=== PATIENT | female | born 1990 | race Caucasian/White ===

== ENCOUNTER 2018-12-07 08:37 | Emergency (ER) | payer MEDICAID, SELFPAY ==
[2018-12-07] VITALS (15 sets, daily range): BP systolic 124–130; BP diastolic 80–81; PULSE 53–80; RESP 9–17; TEMP 36.5–36.6; O2SAT 97–98
--- NOTE | 2018-12-07 09:07 | W.ED.GENAD ---
Discharge Plan Disposition Patient Disposition: HOME Discharge Details Chief Complaint: Allergic Clinical Impression: Rash, Strep pharyngitis Primary Care Provider: Neeraj Shaffer ED Provider: Devan Benitez Home Meds and New Rx's Prescriptions: New doxycycline hyclate 100 mg capsule 100 mg PO BID Qty: 20 RF: 0 clindamycin HCl 150 mg capsule 450 mg PO TID 10 Days Qty: 90 RF: 0 Continued medroxyprogesterone [Depo-Provera] 150 mg/mL syringe 150 mg IM .Q3 MONTHS Qty: 1 RF: 0 fluoxetine 20 mg capsule 20 mg PO DAILY Qty: 90 RF: 3 buprenorphine-naloxone [Suboxone] 8-2 mg film 1 film SL BID MDD 16 mg Qty: 28 RF: 0 vitamin B complex tablet 1 tab PO DAILY RF: 0 melatonin 5 mg capsule 5 mg PO HS PRN RF: 0 Discontinued terbinafine HCl 250 mg tablet 250 mg PO DAILY Qty: 14 RF: 0 Discharge Instructions Instructions: Cellulitis (ED), Pharyngitis (ED) Additional Instructions: Please take clindamycin and doxycycline as prescribed. Please contact your primary care physician to arrange follow-up. Call today to be seen in reassessment later this week. Return to the ER for any worsening or new concerning symptoms. Referrals: Bob Machado DO [OSTEOPATHIC DOCTOR] - Medical Decision Making 9:00 --28-year-old female with h/o MRSA here with sore throat, rash on her scalp, draining wound posterior scalp -on terbinafine for the past 3 days. Consider disseminated fungal infection. New sexual partner. Will check for HIV. Also check for syphillis. Screening labs including chemistry, CBC. Wound culture. 9:15 -- Rapid strep testing faintly positive. 11:15 --labs reviewed and nondiagnostic. Plan to treat with clindamycin for strep, patient has anaphylactic reaction to penicillin, and will also cover with doxycycline for MRSA coverage. I spoke to Dr. Pruett about the treatment plan and he will see the patient in follow-up. Cultures pending at discharge. Disposition decision was made weighing the risks and benefits of hospitalization versus outpatient treatment, the risk for further decompensation, and the patient's wishes. The patient was stable and requested discharge. Prior to discharge, my usual and customary return precautions were reviewed with the patient - this included follow-up instructions and reason to return to the emergency department if condition worsens, does not improve as expected, or other new concerns arise. HPI General Mode of arrival: ambulatory. Date/Time Provider Initiated Documentation: 12/07/18 08:50. Limitations to Documentation: no limitations. Information obtained by: patient. HPI Narrative: 28-year-old female presents with chief complaint of sore throat. Patient notes that she saw her primary care physician last week. She noticed a sore in the back of her scalp. Primary care physician was worried about tinea capitis and started her on to her on terbinifine. She took 3 days of antifungal. Over the past couple days she has developed additional circular sores on her frontal scalp, and face largest on her chin measuring about 1 cm. Today she woke up with a sore throat and sensation that her throat is swollen. No urticarial rash. No nausea or vomiting. No fever. Patient has new sexual partner recently. Immunizations are up-to-date. Patient has prior heroin injection, has never used IV drugs, currently controlled on Suboxone. Related Data Home Medications Medication Instructions Recorded Confirmed medroxyprogesterone 150 mg/mL 150 mg IM .Q3 MONTHS #1 ml 10/23/18 12/07/18 intramuscular syringe melatonin 5 mg capsule 5 mg PO HS PRN cap 11/18/18 12/07/18 vitamin B complex tablet 1 tab PO DAILY 11/18/18 12/07/18 buprenorphine 8 mg-naloxone 2 mg 1 film SL BID #28 each MDD 16 mg 12/04/18 12/07/18 sublingual film fluoxetine 20 mg capsule 20 mg PO DAILY #90 cap 12/04/18 12/07/18 clindamycin HCl 450 mg PO TID 10 Days #90 cap 12/07/18 doxycycline hyclate 100 mg PO BID #20 cap 12/07/18 Previous Rx's Medication Instructions Recorded medroxyprogesterone 150 mg/mL 150 mg IM .Q3 MONTHS #1 ml 10/23/18 intramuscular syringe buprenorphine 8 mg-naloxone 2 mg 1 film SL BID #28 each MDD 16 mg 12/04/18 sublingual film fluoxetine 20 mg capsule 20 mg PO DAILY #90 cap 12/04/18 clindamycin HCl 450 mg PO TID 10 Days #90 cap 12/07/18 doxycycline hyclate 100 mg PO BID #20 cap 12/07/18 Allergies Allergy/AdvReac Type Severity Reaction Status Date / Time Penicillins Allergy Anaphylaxsi Verified 12/07/18 08:55 s General Stated Complaint: Allergic ADY: 2 Review of Systems Review of Systems All systems reviewed & are unremarkable except as noted in HPI and below PFSH Medical History Tobacco use disorder (Acute) Opioid abuse (Acute) Menorrhagia (Acute) Depressive disorder (Acute) Amenorrhea (Acute) Intrauterine (Acute) Pityriasis versicolor (Acute) Family History Mother Breast cancer Hypertension Father Hypertension Social History adopted: No caregiver/support person: No foster care: No household members: family and children lives independently: Yes number of children: 1 current occupational status: unemployed frequency: 3-4 times per week Smoking/Tobacco Use Status: Current every day alcohol intake: current alcohol intake frequency: holidays/special occasions only substance use type: marijuana seatbelt use: always 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 working smoke detector in home: Yes fire extinguisher in home: Yes carbon monox detector in home: Yes Exam Const General: cooperative and no acute distress HENMT Head: scalp lesion (cicular lesion posterior scalp with purulent discharge) Mouth: moist mucous membranes Throat: uvula midline, posterior oropharynx abnormal edema, erythema and exudates and uvular edema Eyes Conjunctivae: normal conjunctivae Sclera: normal sclerae EOM: EOM intact bilaterally Neck Neck: trachea midline and supple Resp Auscultation: clear to auscultation bilaterally, no rales, no rhonchi and no wheezes Cardio Jugular venous pressure: no JVD Rate: regular rate and not tachycardic Rhythm: regular rhythm GI Palpation: soft, not firm, no guarding, no masses, not rigid and nontender Skin Rashes: rashes noted (see head above, also with few lesions on face including shallow ulcer chin) Neuro General: alert, awake, oriented x3 and tone normal Extrem General: no edema Psych Appearance: grossly normal Mental Status: mental status grossly normal Speech and Movement: speech and movement normal Course Vital Signs Temperature 36.6 C 12/07/18 08:50 Pulse 75 12/07/18 08:50 Respiratory Rate 15 12/07/18 08:50 Blood Pressure 124/81 12/07/18 08:50 Pulse Oximetry 98 12/07/18 08:50 Temperature 36.6 C 12/07/18 08:50 Temperature Source Temporal Artery Scan 12/07/18 08:50 Pulse 75 12/07/18 08:50 Respiratory Rate 15 12/07/18 08:50 Respiratory Effort Non-Labored 12/07/18 09:03 Respiratory Pattern Normal 12/07/18 09:03 Blood Pressure 124/81 12/07/18 08:50 Blood Pressure Position Sitting 12/07/18 08:50 Pulse Oximetry 98 12/07/18 08:50 Oxygen Delivery Method Room Air 12/07/18 08:50 Oxygen Flow Rate 0 12/07/18 08:50 Pain Level 0 12/07/18 08:50 Lab/Test Results Lab/Test Results: POC Strep Test-[facility](Rapid) Start: 12/07/18 09:01 Freq: .Rapid Strep Test Status: Active Protocol: Document 12/07/18 09:07 SGL (Rec: 12/07/18 09:07 [facility] [place] [id number]) Strep test-[facility](Rapid)-POC POC-Strep test-[facility] (Rapid) Positive POC-Strep test-[facility] (Rapid) Positive
--- NOTE | 2018-12-07 09:17 | ED.GENADUL_ITS ---
Discharge Plan Disposition Patient Disposition: HOME Discharge Details Chief Complaint: Allergic Clinical Impression: Rash, Strep pharyngitis Primary Care Provider: Neeraj Shaffer ED Provider: Devan Benitez Home Meds and New Rx's Prescriptions: New doxycycline hyclate 100 mg capsule 100 mg PO BID Qty: 20 RF: 0 clindamycin HCl 150 mg capsule 450 mg PO TID 10 Days Qty: 90 RF: 0 Continued medroxyprogesterone [Depo-Provera] 150 mg/mL syringe 150 mg IM .Q3 MONTHS Qty: 1 RF: 0 fluoxetine 20 mg capsule 20 mg PO DAILY Qty: 90 RF: 3 buprenorphine-naloxone [Suboxone] 8-2 mg film 1 film SL BID MDD 16 mg Qty: 28 RF: 0 vitamin B complex tablet 1 tab PO DAILY RF: 0 melatonin 5 mg capsule 5 mg PO HS PRN RF: 0 Discontinued terbinafine HCl 250 mg tablet 250 mg PO DAILY Qty: 14 RF: 0 Discharge Instructions Instructions: Cellulitis (ED), Pharyngitis (ED) Additional Instructions: Please take clindamycin and doxycycline as prescribed. Please contact your primary care physician to arrange follow-up. Call today to be seen in reassessment later this week. Return to the ER for any worsening or new concerning symptoms. Referrals: Bob Machado DO [OSTEOPATHIC DOCTOR] - Medical Decision Making 9:00 --28-year-old female with h/o MRSA here with sore throat, rash on her scalp, draining wound posterior scalp -on terbinafine for the past 3 days. Consider disseminated fungal infection. New sexual partner. Will check for HIV. Also check for syphillis. Screening labs including chemistry, CBC. Wound culture. 9:15 -- Rapid strep testing faintly positive. 11:15 --labs reviewed and nondiagnostic. Plan to treat with clindamycin for strep, patient has anaphylactic reaction to penicillin, and will also cover with doxycycline for MRSA coverage. I spoke to Dr. Pruett about the treatment plan and he will see the patient in follow-up. Cultures pending at discharge. Disposition decision was made weighing the risks and benefits of hospitalization versus outpatient treatment, the risk for further decompensation, and the patient's wishes. The patient was stable and requested discharge. Prior to discharge, my usual and customary return precautions were reviewed with the patient - this included follow-up instructions and reason to return to the emergency department if condition worsens, does not improve as expected, or other new concerns arise. HPI General Mode of arrival: ambulatory . Date/Time Provider Initiated Documentation: 12/07/18 08:50 . Limitations to Documentation: no limitations . Information obtained by: patient . HPI Narrative: 28-year-old female presents with chief complaint of sore throat. Patient notes that she saw her primary care physician last week. She noticed a sore in the back of her scalp. Primary care physician was worried about tinea capitis and started her on to her on terbinifine. She took 3 days of antifungal. Over the past couple days she has developed additional circular sores on her frontal scalp, and face largest on her chin measuring about 1 cm. Today she woke up with a sore throat and sensation that her throat is swollen. No urticarial rash. No nausea or vomiting. No fever. Patient has new sexual partner recently. Immunizations are up-to-date. Patient has prior heroin injection, has never used IV drugs, currently controlled on Suboxone. Related Data Home Medications Medication Instructions Recorded Confirmed medroxyprogesterone 150 mg/mL 150 mg IM .Q3 MONTHS #1 ml 10/23/18 12/07/18 intramuscular syringe melatonin 5 mg capsule 5 mg PO HS PRN cap 11/18/18 12/07/18 vitamin B complex tablet 1 tab PO DAILY 11/18/18 12/07/18 buprenorphine 8 mg-naloxone 2 mg 1 film SL BID #28 each MDD 16 mg 12/04/18 12/07/18 sublingual film fluoxetine 20 mg capsule 20 mg PO DAILY #90 cap 12/04/18 12/07/18 clindamycin HCl 450 mg PO TID 10 Days #90 cap 12/07/18 doxycycline hyclate 100 mg PO BID #20 cap 12/07/18 Previous Rx's Medication Instructions Recorded medroxyprogesterone 150 mg/mL 150 mg IM .Q3 MONTHS #1 ml 10/23/18 intramuscular syringe buprenorphine 8 mg-naloxone 2 mg 1 film SL BID #28 each MDD 16 mg 12/04/18 sublingual film fluoxetine 20 mg capsule 20 mg PO DAILY #90 cap 12/04/18 clindamycin HCl 450 mg PO TID 10 Days #90 cap 12/07/18 doxycycline hyclate 100 mg PO BID #20 cap 12/07/18 Allergies Allergy/AdvReac Type Severity Reaction Status Date / Time Penicillins Allergy Anaphylaxsi Verified 12/07/18 08:55 s General Stated Complaint: Allergic ADY: 2 Review of Systems Review of Systems All systems reviewed & are unremarkable except as noted in HPI and below PFSH Medical History Tobacco use disorder (Acute) Opioid abuse (Acute) Menorrhagia (Acute) Depressive disorder (Acute) Amenorrhea (Acute) Intrauterine (Acute) Pityriasis versicolor (Acute) Family History Mother Breast cancer Hypertension Father Hypertension Social History adopted: No caregiver/support person: No foster care: No household members: family and children lives independently: Yes number of children: 1 current occupational status: unemployed frequency: 3-4 times per week Smoking/Tobacco Use Status: Current every day alcohol intake: current alcohol intake frequency: holidays/special occasions only substance use type: marijuana seatbelt use: always drive 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 working smoke detector in home: Yes fire extinguisher in home: Yes carbon monox detector in home: Yes Exam Const General: cooperative and no acute distress HENMT Head: scalp lesion (cicular lesion posterior scalp with purulent discharge) Mouth: moist mucous membranes Throat: uvula midline, posterior oropharynx abnormal edema, erythema and exudates and uvular edema Eyes Conjunctivae: normal conjunctivae Sclera: normal sclerae EOM: EOM intact bilaterally Neck Neck: trachea midline and supple Resp Auscultation: clear to auscultation bilaterally, no rales, no rhonchi and no wheezes Cardio Jugular venous pressure: no JVD Rate: regular rate and not tachycardic Rhythm: regular rhythm GI Palpation: soft, not firm, no guarding, no masses, not rigid and nontender Skin Rashes: rashes noted (see head above, also with few lesions on face including shallow ulcer chin) Neuro General: alert, awake, oriented x3 and tone normal Extrem General: no edema Psych Appearance: grossly normal Mental Status: mental status grossly normal Speech and Movement: speech and movement normal Course Vital Signs Temperature 36.6 C 12/07/18 08:50 Pulse 75 12/07/18 08:50 Respiratory Rate 15 12/07/18 08:50 Blood Pressure 124/81 12/07/18 08:50 Pulse Oximetry 98 12/07/18 08:50 Temperature 36.6 C 12/07/18 08:50 Temperature Source Temporal Artery Scan 12/07/18 08:50 Pulse 75 12/07/18 08:50 Respiratory Rate 15 12/07/18 08:50 Respiratory Effort Non-Labored 12/07/18 09:03 Respiratory Pattern Normal 12/07/18 09:03 Blood Pressure 124/81 12/07/18 08:50 Blood Pressure Position Sitting 12/07/18 08:50 Pulse Oximetry 98 12/07/18 08:50 Oxygen Delivery Method Room Air 12/07/18 08:50 Oxygen Flow Rate 0 12/07/18 08:50 Pain Level 0 12/07/18 08:50 Lab/Test Results Lab/Test Results: POC Strep Test-[facility](Rapid) Start: 12/07/18 09:01 Freq: .Rapid Strep Test Status: Active Protocol: Document 12/07/18 09:07 SGL (Rec: 12/07/18 09:07 [facility] [place] [id number]) Strep test-[facility](Rapid)-POC POC-Strep test-[facility] (Rapid) Positive POC-Strep test-[facility] (Rapid) Positive
[2018-12-07] MEDS: Acetaminophen 325 MG TAB 650 MG PO (09:28)
[2018-12-07] MEDS: Ibuprofen 600 MG TAB PO (09:29)
[2018-12-07] MEDS: Dexamethasone 10 MG/ML VIAL PO (09:29)
[2018-12-07] MEDS: Normal Saline Flush 10 ML SYR IVP (09:30)
[2018-12-07 09:35] LABS: Abs Immature Grans 0.02 k/cumm (0.0-0.09); Absolute Basophil Count 0.04 k/cumm (0.0-0.2); Absolute Eosinophil Count 0.16 k/cumm (0.0-0.7); Absolute Lymphocyte Count 1.75 k/cumm (1.2-3.4); Absolute Monocyte Count 0.75 k/cumm (0.11-0.7); Absolute Neutrophil Count 7.71 k/cumm (1.2-6.7); Basophils % 0.4; Eosinophils % 1.5; HGB 13.7 g/dL (12.0-15.5); Immature Grans % 0.2; Lymphocytes % 16.8; Mean Corp. HGB Concentration 32.6 g/dL (32.0-36.0); Mean Corpuscular Hemoglobin 32.6 pg (27.0-33.0); Mean Platelet Volume 10.4 fL (8.0-11.0); Monocytes % 7.2; Neutrophils % 73.9; Platelet Count 179 x1000/uL (130-400); RBC Distribution Width 13.1 % (11.7-14.6); White Blood Cell Count 10.43 k/cumm (4.4-10.8)
[2018-12-07 09:39] LABS: ALT 25 U/L (12-78); AST 26 U/L (15-37); Alkaline Phosphatase 101 U/L (46-116); Anion Gap 11.3 mmol/L (3-11); BUN 16 mg/dL (7-18); Bilirubin, Total 0.6 mg/dL (0.2-1.0); CO2 27.7 mmol/L (21.0-32.0); CREATININE 0.77 mg/dL (0.55-1.02); Chloride 103 mmol/L (98-107); Glucose 86 mg/dL (70-100); Potassium 4.5 mmol/L (3.5-5.1); Sodium 142 mmol/L (136-145); Total Protein 8.2 g/dL (6.4-8.2)
[2018-12-07] MEDS: Doxycycline Hyclate 100 MG CAP PO (11:23)
[2018-12-07] MEDS: Clindamycin 150 MG CAP 450 MG PO (11:23)
[2018-12-08 11:23] LABS: HIV-1/2 Ag & Ab Screen Negative (NEGAT)
[2018-12-08 12:14] LABS: Syphilis Serology (RPR) Negative (Negative)
== END 2018-12-07 11:36 | disposition home or self-care (01) ==
PROVIDERS: Emergency Provider Student in an Organized Health Care Education/Training Program; PCP Family Medicine
DX: J02.0 Streptococcal pharyngitis (principal); R21 Rash and other nonspecific skin eruption
CPT/HCPCS: 36415; 80053; 81025; 87077; 87101; 87206; 87389; 87880; 99283; 85025; 86592; 87070; 87186; 87205; J1100

== ENCOUNTER 2018-12-22 15:24 | Outpatient (REF) | payer MEDICAID, SELFPAY ==
[2018-12-24 13:36] LABS: Chlamydia Result Negative; GC Result Negative
== END 2018-12-22 15:44 ==
LOC: LBN 15:24
PROVIDERS: PCP Family Medicine; Visit Provider Family Medicine
DX: N39.0 Urinary tract infection, site not specified (principal); Z11.3 Encounter for screening for infections with a predominantly sexual mode of transmission
CPT/HCPCS: 87491; 87591; 87086

== ENCOUNTER 2018-12-25 12:28 | Outpatient (REF) | payer MEDICAID, SELFPAY | END 2018-12-25 12:48 | LOC: LBN 12:28 | PROVIDERS: PCP Family Medicine; Visit Provider Family Medicine | DX: R19.7 Diarrhea, unspecified (principal); Z53.8 Procedure and treatment not carried out for other reasons | CPT/HCPCS: 87324 ==

== ENCOUNTER 2019-03-10 11:15 | Outpatient (CLI) | payer MEDICAID, SELFPAY ==
[2019-03-11 14:30] LABS: Chlamydia Result Negative; GC Result Negative; Specimen Description URINE
== END 2019-03-10 11:35 ==
PROVIDERS: PCP Family Medicine; Visit Provider Family Medicine
DX: Z11.3 Encounter for screening for infections with a predominantly sexual mode of transmission (principal)
CPT/HCPCS: 87491; 87591

== ENCOUNTER 2019-03-22 10:35 | Outpatient (REF) | payer MEDICAID, SELFPAY ==
--- NOTE | 2019-03-22 09:30 | PAPFT_PTH ---
PATIENT: Latricia Peralta LOC: [facility] U#:[id number] AGE/SX: 28/F ROOM: RE03/22/[address]: Bob Machado DO : 1990 BED: DIS: 03/22/2019 SPEC #: [id number] RECD: 03/22/19 12:52 STATUS: AMBROCIO PLASENCIA #: [id number] ELISABETH: 03/22/19 09:[address]: Bob Machado DEPT: [facility] Cytology RECD BY: Eleanor Arce Tissues: 1 - CX/ENDOCX FOR PAP SMEARS Procedures: PAP THIN PREP/UVM Screening HPV DNA PROBE Comments: [id number]
[2019-03-23 13:20] LABS: Chlamydia Result Negative; GC Result Negative; Specimen Description CERVIX
== END 2019-03-22 10:55 ==
LOC: LBN 10:35
PROVIDERS: PCP Family Medicine; Visit Provider Family Medicine
DX: N89.8 Other specified noninflammatory disorders of vagina (principal); Z11.3 Encounter for screening for infections with a predominantly sexual mode of transmission; Z12.4 Encounter for screening for malignant neoplasm of cervix; Z11.51 Encounter for screening for human papillomavirus (HPV)
CPT/HCPCS: 87491; 87591; 88142; 87480; 87510; 87624; 87660

== ENCOUNTER 2020-04-13 01:54 | Outpatient (CLI) | payer MEDICAID, SELFPAY ==
[2020-04-13 12:41] LABS: Abs Immature Grans 0.01 k/cumm (0.0-0.09); Absolute Basophil Count 0.01 k/cumm (0.0-0.2); Absolute Eosinophil Count 0.14 k/cumm (0.0-0.7); Absolute Neutrophil Count 2.36 k/cumm (1.2-6.7); Basophils % 0.2; Eosinophils % 2.8; HCT 42.2 % (36.0-46.0); HGB 13.7 g/dL (12.0-15.5); Immature Grans % 0.2 %; Lymphocytes % 41.8; Mean Corp. HGB Concentration 32.5 g/dL (32.0-36.0); Mean Corpuscular Hemoglobin 31.1 pg (27.0-33.0); Mean Corpuscular Volume 95.9 fL (80-95); Mean Platelet Volume 10.3 fL (8.0-11.0); Platelet Count 179 x1000/uL (130-400); RBC Distribution Width 12.9 % (11.7-14.6); White Blood Cell Count 5.02 k/cumm (4.4-10.8)
[2020-04-13 13:35] LABS: ALT 48 U/L (14-59); AST 32 U/L (15-37); Albumin 3.7 g/dL (3.4-5.0); Alkaline Phosphatase 65 U/L (46-116); Anion Gap 5.7 mmol/L (3-11); BUN 15 mg/dL (7-18); Bilirubin, Total 0.4 mg/dL (0.2-1.0); CO2 28.3 mmol/L (21.0-32.0); CREATININE 0.76 mg/dL (0.55-1.02); Calcium 8.7 mg/dL (8.5-10.1); Chloride 104 mmol/L (98-107); Glucose 119 mg/dL (74-106); Potassium 4.2 mmol/L (3.5-5.1); Sodium 138 mmol/L (136-145); Total Protein 6.9 g/dL (6.4-8.2)
== END 2020-04-13 02:14 ==
PROVIDERS: PCP Family Medicine; Visit Provider Family Medicine
DX: R23.2 Flushing (principal)
CPT/HCPCS: 36415; 80053; 84443; 85025

== ENCOUNTER 2021-03-03 22:07 | Emergency (ER) | payer MEDICAID, SELFPAY ==
[2021-03-03 22:12] VITALS: BP 173/158; PULSE 125; RESP 20; TEMP 36.4; O2SAT 99
[2021-03-03 22:29] LABS: Abs Immature Grans 0.05 10^3/uL (0.0-0.06); Absolute Basophil Count 0.05 10^3/uL (0.0-0.2); Absolute Eosinophil Count 0.11 10^3/uL (0.0-0.7); Absolute Lymphocyte Count 3.38 10^3/uL (1.2-3.4); Absolute Monocyte Count 1.12 10^3/uL (0.1-0.8); Basophils % 0.4; Eosinophils % 0.8; HCT 33.2 % (36.0-46.0); Immature Grans % 0.4; Lymphocytes % 24.7; MCH 31.9 pg (27.0-33.0); MCHC 33.1 % (32.0-36.0); MCV 96.2 fL (80-95); MPV 10.2 fL (8.0-11.0); Monocytes % 8.2; Neutrophils % 65.5; Nucleated RBC 0 %; Platelet Count 236 10^3/uL (130-400); RBC 3.45 10^6/uL (3.93-5.22); RDW 12.1 % (11.7-14.6); RDW-SD 42.7 fL; WBC 13.69 10^3/uL (4.4-10.8)
--- NOTE | 2021-03-03 22:29 | ED.GENADUL_ITS ---
Discharge Plan Disposition Patient Disposition: [facility] Condition: Stable Discharge Details Chief Complaint: Abd Prob Clinical Impression: Abdominal pain during Primary Care Provider: Bob Machado ED Provider: Ronald Harrison Home Meds and New Rx's Prescriptions: No Action buprenorphine-naloxone [Suboxone] 8-2 mg film 1 film SL BID MDD 16 mg Qty: 14 RF: 5 fluoxetine 40 mg capsule 40 mg PO DAILY Qty: 90 RF: 3 Medical Decision Making 30 yo female who states she had a positive test 3 days ago at home and her lmp was 3/, comes in with several days of n/v and not able to hold anything down but tonight started to have abdominal arnaldo and felt lightheaded. She denies loc and denies chest pain or dyspnea, no fevers or cough. Her abdominal pain is in the mid to lower abdomen with no guarding or rebound on exam. She denies vaginal bleeding or discharge. No free fluid on initial FAST exam. Concern for hyperemesis as cause of her n/v for the past several days but given acute onset pain also concern for possible ectopic vs ovarian cyst vs torsion. no Rlq tenderness so doubt appendicitis. Will obtain labs and try to page an automotive tire technician in for formal ultrasound to evaluate for ectopic. no automotive tire technician available to come in, [place] [id number] and otherwise stable labs. I repeated bedside u/s I see a thickened uterus but no other signs of intrauterine . Discussed case with Dr. Carbone who felt patient needed transfer for formal ultrasound to diagnose ectopic, will reach out to [facility] for transfer Spoke with Dr. Dickens from [facility] ED who accepts in transfer to their ED. Pt updated and is agreeable with the plan and remains stable Differential Diagnosis Differential Diagnosis: hyperemesis, ectopic, ovarian cyst Medical Records Medical records reviewed: Yes I reviewed the patient's medical records. Lab Data Lab results reviewed: Yes I reviewed the patient's lab results. HPI General Mode of arrival: ambulatory . Date/Time Provider Initiated Documentation: 03/03/21 22:09 . Limitations to Documentation: no limitations . Information obtained by: patient . History of Present Illness 30 year old F presents to the emergency department with the chief complaint of abdominal pain, described as moderate, Patient abdomen. Patient started experiencing this hour(s) (1) and it has been constant. No relieving factors improve symptom(s), No exacerbating factors reported . Patient notes nausea/vomiting. Patient did receive the following treatments prior to arrival, none Related Data Home Medications Medication Instructions Recorded Confirmed fluoxetine 40 mg capsule 40 mg PO DAILY #90 cap 03/30/20 03/03/21 buprenorphine 8 mg-naloxone 2 mg 1 film SL BID #14 each MDD 16 mg 02/05/21 03/03/21 sublingual film Previous Rx's Medication Instructions Recorded fluoxetine 40 mg capsule 40 mg PO DAILY #90 cap 03/30/20 buprenorphine 8 mg-naloxone 2 mg 1 film SL BID #14 each MDD 16 mg 02/05/21 sublingual film Allergies Allergy/AdvReac Type Severity Reaction Status Date / Time Penicillins Allergy Anaphylaxsi Verified 03/03/21 23:05 s General Stated Complaint: Abd Prob ADY: 3 Review of Systems All systems reviewed & are unremarkable except as noted in HPI and below Constitutional Constitutional: Denies chills, Denies fever(s) and Denies weakness Cardiovascular Cardiovascular: Denies chest pain and Denies dyspnea Respiratory Respiratory: Denies cough and Denies dyspnea Gastrointestinal Gastrointestinal: Denies vomiting Genitourinary Genitourinary: Denies dysuria Neurologic Neurologic: Denies weakness [facility] Medical History (Updated 03/03/21 @ 23:30 by Ronald Harrison MD) Alcohol use disorder, severe, dependence Amenorrhea Depressive disorder Hyperhidrosis Intrauterine Menorrhagia Opioid abuse Opioid dependence on agonist therapy Pityriasis versicolor Tobacco use disorder Family History Mother Breast cancer Hypertension Father Hypertension Social History (Updated 08/23/19 @ 13:48 by Abi Cuellar LPN) Smoking/Tobacco Use Status: Current every day Smoking risk assessment performed?: Yes Alcohol Intake: former Details: [facility] in [facility] 28 day program - last drin 01/18/19 Drug use: Current Sobriety Substance use type: marijuana Adopted: No Caregiver/Support person: No Foster care: No Household members: significant other and children Housing: apartment Number of Children: 1 current occupation: not working Current gender identity: female What is your relationship status?: living with partner Panel score (0-1 are the most socially isolated patients): 1 What type of physical activity do you participate in: none Frequency: 3-4 times per week Seatbelt use: always 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 Working smoke detector in home: Yes Fire extinguisher in home: Yes Carbon monox detector in home: Yes Do you feel safe at home: Yes Do you feel safe in your relationship?: Yes Exam Const General: no acute distress Orientation: alert HENMT Head: normal to inspection Ears: external ears normal General nose exam: external nose normal Mouth: moist mucous membranes Eyes General: appearance normal, both eyes and all related structures Neck Neck: normal visual inspection Resp Effort & Inspection: normal respiratory effort and able to speak in complete sentences Cardio Rate: regular rate GI Palpation: soft, not rigid and tender Skin General skin exam: no rashes or lesions noted Neuro General: patient alert and patient oriented x3 Extrem General: normal to inspection Psych Mental Status: mental status grossly normal Course Vital Signs Vital signs: Vital Signs Temperature 36.4 C L 03/03/21 22:12 Pulse 125 H 03/03/21 22:12 Respiratory Rate 20 03/03/21 22:12 Blood Pressure 173/158 H 03/03/21 22:12 Pulse Oximetry 99 03/03/21 22:12 Temperature 36.4 C L 03/03/21 22:12 Temperature Source Temporal Artery Scan 03/03/21 22:12 Pulse 125 H 03/03/21 22:12 Respiratory Rate 20 03/03/21 22:12 Respiratory Effort Non-Labored 03/03/21 22:16 Blood Pressure 173/158 H 03/03/21 22:12 Blood Pressure Position Sitting 03/03/21 22:12 Pulse Oximetry 99 03/03/21 22:12 Oxygen Delivery Method Room Air 03/03/21 22:12 Oxygen Flow Rate 0 03/03/21 22:12 Pain Level 5 03/03/21 22:16
[2021-03-03] MEDS: Normal Saline 1,000 ML 1000 ML IV (22:35)
[2021-03-03 22:41] LABS: Absolute Neutrophil Count 8.97 10^3/uL (1.2-6.7)
[2021-03-03 23:05] LABS: ALT 19 U/L (14-59); AST 15 U/L (15-37); Albumin 3.5 g/dL (3.4-5.0); Alkaline Phosphatase 60 U/L (46-116); Anion Gap 10.5 mmol/L (3-11); BUN 17 mg/dL (7-18); Bilirubin, Direct 0.1 mg/dL (0.0-0.2); Bilirubin, Total 0.3 mg/dL (0.2-1.0); CO2 26.5 mmol/L (21.0-32.0); CREATININE 0.8 mg/dL (0.55-1.02); Calcium 9.1 mg/dL (8.5-10.1); Chloride 101 mmol/L (98-107); Glucose 114 mg/dL (74-106); HCG Quant, Pregnancy 10622 mIU/mL (1-3); Potassium 3.9 mmol/L (3.5-5.1); Sodium 138 mmol/L (136-145); Total Protein 7.2 g/dL (6.4-8.2)
[2021-03-03 23:12] LABS: Lipase 61 U/L (73-393)
[2021-03-03 23:22] VITALS: BP 112/55; PULSE 75; RESP 20; O2SAT 100
[2021-03-03] MEDS: Acetaminophen 500 MG TAB 1000 MG PO (23:48)
[2021-03-04 00:33] VITALS: BP 112/55; PULSE 75; RESP 20; TEMP 36.4; O2SAT 100
== END 2021-03-03 23:30 | disposition short-term general hospital (02) ==
PROVIDERS: Emergency Provider Emergency Medicine; PCP Family Medicine
DX: R10.30 Lower abdominal pain, unspecified (principal); R42 Dizziness and giddiness; R11.2 Nausea with vomiting, unspecified; Z32.01 Encounter for pregnancy test, result positive
CPT/HCPCS: 36415; 80053; 83690; 86850; 86900; 86901; 96360; 99285; 81003; 82248; 84702; 85025; 99284

== ENCOUNTER 2021-10-27 15:23 | Outpatient (REF) | payer MEDICAID, SELFPAY ==
[2021-10-27 15:05] LABS: Bilirubin Negative (Negative); Blood Negative (Negative); Clarity Sl Cloudy (Clear); Glucose Negative (Negative); Ketones Negative (Negative); Leukocyte Esterase Negative (Negative); Nitrite Positive (Negative); Specific Gravity 1.025 (1.005-1.025); Urobilinogen 0.2 EU/dL (Up TO 0.2); pH 6.5 (5-8)
[2021-10-27 15:22] LABS: Bacteria Moderate HPF (Negative); Casts Negative LPF (Negative); Crystals Negative HPF (Negative); Epithelial Cells Many HPF (Negative); Mucus Negative (Negative); RBC 0-2 HPF (0-2)
[2021-10-27 15:23] LABS: C & S Indicated? No/Sq. Contamination
[2021-10-29 14:55] LABS: COVID-19 RT-PCR UVMMC Result Negative (Negative)
== END 2021-10-27 15:24 | disposition home or self-care (01) ==
LOC: NCHCN 15:23
PROVIDERS: PCP Family Medicine; Visit Provider Nurse Practitioner Family
DX: Z20.822 Contact with and (suspected) exposure to COVID-19 (principal); R05.8 Other specified cough; N39.0 Urinary tract infection, site not specified
CPT/HCPCS: U0003; 81003; 81015

== ENCOUNTER 2021-11-19 16:52 | Emergency (ER) | payer MEDICAID, SELFPAY ==
[2021-11-19 17:05] VITALS: BP 121/69; PULSE 56; RESP 16; TEMP 36.6; O2SAT 100
--- NOTE | 2021-11-19 17:11 | ED.GENADUL_ITS ---
Discharge Plan Disposition Patient Disposition: HOME Condition: Improving Discharge Details Clinical Impression: Cephalgia Primary Care Provider: Bob Machado ED Provider: Gabe Membreno Home Meds and New Rx's Prescriptions: Continued prenat.vits,yobany,vin-rnbh-ghvxs Tablet 1 tab PO DAILY RF: 0 clonidine HCl 0.1 mg tablet 0.1 mg PO BID MDD 0.2 mg PRN (Reason: opiate withdrawal) Qty: 90 RF: 0 buprenorphine-naloxone [Suboxone] 2-0.5 mg film 1 film buccal DAILY MDD 10 mg Qty: 28 RF: 2 buprenorphine-naloxone [Suboxone] 4-1 mg film 1 film sublingual BID MDD 10 mg Qty: 56 RF: 2 Chantix Starting Month Box 0.5 mg (11)- 1 mg (42) tablets,dose pack See Rx Instructions PO PER PKG DIR Qty: 53 RF: 0 Hold Instructions: Home Medication placed on hold at Doctor's office albuterol sulfate 90 mcg/actuation HFA aerosol inhaler 2 puff inhalation Q6H PRN (Reason: shortness of breath or wheezing) Qty: 6.7 RF: 0 fluoxetine 40 mg capsule 40 mg PO DAILY Qty: 90 RF: 3 Discharge Instructions Instructions: General Headache (ED) Additional Instructions: Laboratory values are unremarkable for emergent process, your urine test was negative. [id number] Tylenol and/or Motrin as directed for discomfort. Plenty of fluids to avoid dehydration. Please watch for new or worsening symptoms and return to the ER for any concerns. Otherwise contact your primary care provider to discuss your ongoing symptoms need for outpatient reevaluation Medical Decision Making This is a 31-year-old female presenting to the ER reporting she is a few days late for her menstrual cycle, concerned about a potential ectopic , reporting mild global headache, photosensitivity, mild nausea and vomiting x1 today. She also is concerned about the potential dehydration as she states she has had very little p.o. intake today. Denies recent illness or sick contacts. Clinically she appears well, nontoxic. She is neurologically intact. Plan is to obtain IV access, give IV fluid, Zofran, Toradol. Obtain routine screening laboratory values including a urinalysis and test. POC negative. Abdomen soft, nontender. Extremely low suspicion for ectopic . Minimal leukocytosis of 11.79, no evidence of anemia, platelet count appropriate at 215. Chemistries unremarkable. Lipase 66. Urinalysis unremarkable as well. Tox screen positive for THC, alcohol less than 3. Discussed work-up with patient including negative . She is relieved and comfortable with discharge. No vomiting while under my care. Reports dramatic improvement of her symptoms with the IV fluid, Zofran, Toradol. Strict discharge and return precautions provided This documentation was generated using [employer] dictation system, please disregard any oddities of phrase or misspellings. Medical Records Medical records reviewed: Yes I reviewed the patient's medical records. Lab Data Lab results reviewed: Yes I reviewed the patient's lab results. Labs: Laboratory Tests Range/Units 11/19/21 11/19/21 11/19/21 17:05 17:05 17:25 WBC (4.4-10.8) 10^3/uL RBC (3.93-5.22) 10^6/uL Hgb (11.2-15.7) g/dL Hct (36.0-46.0) % MCV (80-95) fL MCH (27.0-33.0) pg MCHC (32.0-36.0) % RDW (11.7-14.6) % Plt Count (130-400) 10^3/uL MPV (8.0-11.0) fL Immature Gran % Neutrophils % Lymphocytes % Monocytes % Eosinophils % Basophils % Nucleated RBC % % Absolute Neutrophils (1.2-6.7) 10^3/uL Absolute Lymphocytes (1.2-3.4) 10^3/uL Absolute Monocytes (0.1-0.8) 10^3/uL Absolute Eosinophils (0.0-0.7) 10^3/uL Absolute Basophils (0.0-0.2) 10^3/uL Sodium (136-145) mmol/L 140 Potassium (3.5-5.1) mmol/L 4.2 Chloride (98-107) mmol/L 104 Carbon Dioxide (21.0-32.0) mmol/L 31.7 Anion Gap (3-11) mmol/L 4.3 BUN (7-18) mg/dL 17 Creatinine (0.55-1.02) mg/dL 0.7 Estimated GFR/1.73 m2 (mL/min/1.73m2) >= 60.00 Glucose (74-106) mg/dL 96 Calcium (8.5-10.1) mg/dL 9.1 Total Bilirubin (0.2-1.0) mg/dL 0.3 AST (15-37) U/L 15 ALT (14-59) U/L 17 Alkaline Phosphatase (46-116) U/L 66 Total Protein (6.4-8.2) g/dL 7.5 Albumin (3.4-5.0) g/dL 3.7 Lipase (73-393) U/L 66 Urine Color (Yellow) Yellow Urine Clarity (Clear) Clear Urine pH (5-8) 6.0 Ur Specific [place] (1.005-1.025) 1.015 Urine Protein (Negative) mg/dL Negative Urine Ketones (Negative) mg/dL Negative Urine Blood (Negative) Negative Urine Nitrite (Negative) Negative Urine Bilirubin (Negative) Negative Urine Urobilinogen (Up TO 0.2) EU/dL 0.2 Ur Leukocyte Esterase (Negative) Negative Urine Glucose (Negative) mg/dL Negative Urine Opiates Screen (Negative) Negative Urine Methadone Screen (Negative) Negative Ur Barbiturates Screen (Negative) Negative Ur Tricyclics Screen (Negative) Negative Ur Amphetamines Screen (Negative) Negative U Benzodiazepines Scrn (Negative) Negative Urine Cocaine Screen (Negative) Negative Ur THC Screen (Negative) Positive A Ethyl Alcohol (<10) mg/dL Range/Units 11/19/21 11/19/21 17:25 17:25 WBC (4.4-10.8) 10^3/uL 11.79 H RBC (3.93-5.22) 10^6/uL 4.32 Hgb (11.2-15.7) g/dL 13.1 Hct (36.0-46.0) % 41.0 MCV (80-95) fL 94.9 MCH (27.0-33.0) pg 30.3 MCHC (32.0-36.0) % 32.0 RDW (11.7-14.6) % 12.6 Plt Count (130-400) 10^3/uL 215 MPV (8.0-11.0) fL 9.8 Immature Gran % 0.5 Neutrophils % 65.3 Lymphocytes % 24.8 Monocytes % 6.2 Eosinophils % 2.7 Basophils % 0.5 Nucleated RBC % % 0 Absolute Neutrophils (1.2-6.7) 10^3/uL 7.70 H Absolute Lymphocytes (1.2-3.4) 10^3/uL 2.92 Absolute Monocytes (0.1-0.8) 10^3/uL 0.73 Absolute Eosinophils (0.0-0.7) 10^3/uL 0.32 Absolute Basophils (0.0-0.2) 10^3/uL 0.06 Sodium (136-145) mmol/L Potassium (3.5-5.1) mmol/L Chloride (98-107) mmol/L Carbon Dioxide (21.0-32.0) mmol/L Anion Gap (3-11) mmol/L BUN (7-18) mg/dL Creatinine (0.55-1.02) mg/dL Estimated GFR/1.73 m2 (mL/min/1.73m2) Glucose (74-106) mg/dL Calcium (8.5-10.1) mg/dL Total Bilirubin (0.2-1.0) mg/dL AST (15-37) U/L ALT (14-59) U/L Alkaline Phosphatase (46-116) U/L Total Protein (6.4-8.2) g/dL Albumin (3.4-5.0) g/dL Lipase (73-393) U/L Urine Color (Yellow) Urine Clarity (Clear) Urine pH (5-8) Ur Specific [place] (1.005-1.025) Urine Protein (Negative) mg/dL Urine Ketones (Negative) mg/dL Urine Blood (Negative) Urine Nitrite (Negative) Urine Bilirubin (Negative) Urine Urobilinogen (Up TO 0.2) EU/dL Ur Leukocyte Esterase (Negative) Urine Glucose (Negative) mg/dL Urine Opiates Screen (Negative) Urine Methadone Screen (Negative) Ur Barbiturates Screen (Negative) Ur Tricyclics Screen (Negative) Ur Amphetamines Screen (Negative) U Benzodiazepines Scrn (Negative) Urine Cocaine Screen (Negative) Ur THC Screen (Negative) Ethyl Alcohol (<10) mg/dL < 3.0 HPI General Mode of arrival: ambulatory . Date/Time Provider Initiated Documentation: 11/19/21 16:54 . Limitations to Documentation: no limitations . Information obtained by: patient . HPI Narrative: Is a 31-year-old female, past medical history that includes ectopic , history of opiate abuse, has not used in nearly 8 or 9 years currently on Suboxone, history of alcohol abuse, sober for 3 years, presents to the ER reporting that she is 3 or 4 days late on her menstrual cycle, concerned that she may have an ectopic , awoke this morning with a dull global headache, associated with one episode of vomiting. She states she felt the same way with her previous ectopic . Patient does tell me that she does get similar headaches around her menstrual cycle starting. She reports is associated with mild photophobia. She denies recent illness or trauma, visual changes, neck pain, chest pain, shortness of breath, abdominal pain, dysuria, vaginal bleeding or discharge. Related Data Home Medications Medication Instructions Recorded Confirmed varenicline 0.5 mg (11)-1 mg (42) See Rx Instructions PO PER PKG DIR 03/19/21 11/19/21 tablets in a dose pack #53 dose pk fluoxetine 40 mg capsule 40 mg PO DAILY #90 cap 03/23/21 11/19/21 prenat.vits,yobany,[id number] 1 tab PO DAILY 04/23/21 11/19/21 clonidine HCl 0.1 mg tablet 0.1 mg PO BID PRN #90 tab MDD 0.2 06/11/21 11/19/21 mg buprenorphine 2 mg-naloxone 0.5 mg 1 film BUCCAL DAILY #28 ea MDD 10 10/22/21 11/19/21 sublingual film mg buprenorphine 4 mg-naloxone 1 mg 1 film SUBLINGUAL BID #56 ea MDD 10/22/21 sublingual film 10 mg albuterol sulfate 90 mcg/actuation 2 puff INHALATION Q6H PRN #6.7 g 10/27/21 11/19/21 aerosol inhaler Previous Rx's Medication Instructions Recorded varenicline 0.5 mg (11)-1 mg (42) See Rx Instructions PO PER PKG DIR 03/19/21 tablets in a dose pack #53 dose pk fluoxetine 40 mg capsule 40 mg PO DAILY #90 cap 03/23/21 clonidine HCl 0.1 mg tablet 0.1 mg PO BID PRN #90 tab MDD 0.2 06/11/21 mg buprenorphine 2 mg-naloxone 0.5 mg 1 film BUCCAL DAILY #28 ea MDD 10 10/22/21 sublingual film mg buprenorphine 4 mg-naloxone 1 mg 1 film SUBLINGUAL BID #56 ea MDD 10/22/21 sublingual film 10 mg albuterol sulfate 90 mcg/actuation 2 puff INHALATION Q6H PRN #6.7 g 10/27/21 aerosol inhaler Allergies Allergy/AdvReac Type Severity Reaction Status Date / Time Penicillins Allergy Anaphylaxsi Verified 11/19/21 17:10 s General Stated Complaint: Headache ADY: 3 Review of Systems Constitutional Constitutional: Denies fever(s) and Reports headache(s) Eyes Eyes: Denies change in vision ENT Ears, Nose, Mouth, and Throat: Reports headache(s) and Denies neck pain Cardiovascular Cardiovascular: Denies chest pain and Denies dyspnea Respiratory Respiratory: Denies cough and Denies dyspnea Gastrointestinal Gastrointestinal: Denies abdominal pain, Reports nausea and Reports vomiting Genitourinary Genitourinary: Denies hematuria and Denies dysuria Musculoskeletal Musculoskeletal: Denies neck pain Integumentary/Breasts Skin/Breast: Denies rash Neurologic Neurologic: Reports headache(s) PFSH All Active Problems Cephalgia (Acute) History of unilateral salpingectomy (Acute) L fallopian tube to treat L sided Secondary female infertility (Acute) History of ectopic (Acute) Abdominal pain during (Acute) Hyperhidrosis (Acute) Opioid dependence on agonist therapy (Chronic) Tobacco use disorder (Chronic) Depressive disorder (Chronic) Amenorrhea (Chronic) Medical History Intrauterine Pityriasis versicolor Family History Mother Breast cancer Hypertension Father Hypertension Social History Smoking/Tobacco Use Status: Current every day Tobacco Type: cigarettes Smoking risk assessment performed?: Yes Alcohol Intake: former Details: [facility] in [facility] 28 day program - last drin 01/18/19 Drug use: Current Sobriety Substance use type: marijuana Adopted: No Caregiver/Support person: No Foster care: No Household members: significant other and children Housing: apartment Number of Children: 1 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 Current gender identity: female What is your relationship status?: living with partner Panel score (0-1 are the most socially isolated patients): 1 What type of physical activity do you participate in: none Frequency: 3-4 times per week Seatbelt use: always Drive intox or ride w/intox concrete mixing truck driver: No Working smoke detector in home: Yes Fire extinguisher in home: Yes Carbon monox detector in home: Yes Do you feel safe at home: Yes Do you feel safe in your relationship?: Yes Exam Const General: cooperative, healthy appearing, comfortable and no acute distress Orientation: alert, awake and oriented x3 HENMT Head: normal to inspection, normocephalic and atraumatic Mouth: moist mucous membranes Throat: posterior oropharynx normal Eyes General: appearance normal, both eyes and all related structures Conjunctivae: conjunctivae normal Neck Neck: normal visual inspection, full ROM, no meningeal signs, trachea midline, supple and nontender Resp Effort & Inspection: normal respiratory effort and able to speak in complete sentences Auscultation: clear to auscultation bilaterally Cardio Rate: regular rate Rhythm: regular rhythm GI Palpation: soft and nontender Back/Spine/Pelvis Back: No back tenderness Skin General skin exam: no rashes or lesions noted Neuro General: patient alert, patient awake, moves all extremities and no focal motor deficits Cognition: normal cognition Speech: speech normal Gait: normal gait Motor: muscle tone normal throughout Sensory Exam: no sensory deficits noted Psych Appearance: grossly normal Mental Status: mental status grossly normal Course Vital Signs Vital signs: Vital Signs Temperature 36.6 C 11/19/21 17:05 Pulse 56 L 11/19/21 17:05 Respiratory Rate 16 11/19/21 17:05 Blood Pressure 121/69 11/19/21 17:05 Pulse Oximetry 100 11/19/21 17:05 Temperature 36.6 C 11/19/21 17:05 Temperature Source Skin 11/19/21 17:05 Pulse 56 L 11/19/21 17:05 Respiratory Rate 16 11/19/21 17:05 Respiratory Effort 11/19/21 17:05 Blood Pressure 121/69 11/19/21 17:05 Blood Pressure Position Supine 11/19/21 17:05 Pulse Oximetry 100 11/19/21 17:05 Oxygen Delivery Method Room Air 11/19/21 17:05 Oxygen Flow Rate 0 11/19/21 17:05 Pain Level 10 11/19/21 17:05 Lab/Test Results Lab/Test Results: POC- Test(urine) Negative
[2021-11-19 17:32] LABS: Bilirubin Negative (Negative); Blood Negative (Negative); Clarity Clear (Clear); Glucose Negative (Negative); Ketones Negative (Negative); Leukocyte Esterase Negative (Negative); Nitrite Negative (Negative); Specific Gravity 1.015 (1.005-1.025); Urobilinogen 0.2 EU/dL (Up TO 0.2)
[2021-11-19 17:35] LABS: Abs Immature Grans 0.06 10^3/uL (0.0-0.06); Absolute Basophil Count 0.06 10^3/uL (0.0-0.2); Absolute Eosinophil Count 0.32 10^3/uL (0.0-0.7); Absolute Lymphocyte Count 2.92 10^3/uL (1.2-3.4); Absolute Monocyte Count 0.73 10^3/uL (0.1-0.8); Basophils % 0.5; Eosinophils % 2.7; HGB 13.1 g/dL (11.2-15.7); Immature Grans % 0.5; Lymphocytes % 24.8; MCH 30.3 pg (27.0-33.0); MCV 94.9 fL (80-95); MPV 9.8 fL (8.0-11.0); Monocytes % 6.2; Neutrophils % 65.3; Nucleated RBC 0 %; Platelet Count 215 10^3/uL (130-400); RBC 4.32 10^6/uL (3.93-5.22); RDW 12.6 % (11.7-14.6); RDW-SD 44.4 fL; WBC 11.79 10^3/uL (4.4-10.8)
[2021-11-19 17:37] LABS: *AMPHETAMINES SCREEN URINE Negative (Negative); *BARBITURATES SCREEN URINE Negative (Negative); *BENZODIAZEPINES SCREEN URINE Negative (Negative); Cannabinoids THC Positive (Negative); Cocaine Screen,Urine Negative (Negative); METHADONE URINE SCREEN Negative (Negative); OPIATES URINE SCREEN Negative (Negative)
[2021-11-19 17:41] LABS: Tricyclic Antidepressants Negative (Negative)
[2021-11-19 17:49] LABS: ETHANOL BLOOD < 3.0 mg/dL (<10)
[2021-11-19 17:53] LABS: ALT 17 U/L (14-59); AST 15 U/L (15-37); Albumin 3.7 g/dL (3.4-5.0); Alkaline Phosphatase 66 U/L (46-116); Anion Gap 4.3 mmol/L (3-11); BUN 17 mg/dL (7-18); Bilirubin, Total 0.3 mg/dL (0.2-1.0); CO2 31.7 mmol/L (21.0-32.0); CREATININE 0.7 mg/dL (0.55-1.02); Calcium 9.1 mg/dL (8.5-10.1); Chloride 104 mmol/L (98-107); Glucose 96 mg/dL (74-106); Lipase 66 U/L (73-393); Potassium 4.2 mmol/L (3.5-5.1); Sodium 140 mmol/L (136-145); Total Protein 7.5 g/dL (6.4-8.2)
[2021-11-19] MEDS: Normal Saline 1,000 ML 1000 ML IV (17:56)
[2021-11-19] MEDS: Ketorolac 30 MG/ML VIAL IVP (17:56)
[2021-11-19] MEDS: Ondansetron 4 MG/2 ML VIAL IVP (17:56)
[2021-11-19 19:04] VITALS: BP 121/69; PULSE 56; RESP 16; TEMP 36.6; O2SAT 100
== END 2021-11-19 19:04 | disposition home or self-care (01) ==
PROVIDERS: Emergency Provider Physician Assistant; PCP Family Medicine
DX: R51.9 Headache, unspecified (principal); R11.2 Nausea with vomiting, unspecified
CPT/HCPCS: 36415; 80053; 80307; 81025; 83690; 96361; 96374; 96375; 99284; 80320; 81003; 85025; 99283; J1885; J2405

== ENCOUNTER 2021-11-28 00:16 | Outpatient (CLI) | payer MEDICAID, SELFPAY ==
--- NOTE | 2021-11-28 07:30 | DI.RAD_ITS ---
Exam(s) XR SCOLIOSIS T-L SPINE EXAM: XR SCOLIOSIS T-L SPINE CLINICAL HISTORY: Back pain with scoliosis,R10.9. TECHNIQUE: 2D digital imaging was performed. COMPARISON: No exams were available for comparison FINDINGS: Standing scoliosis series performed. No previous for comparison. There is very mild thoracic scoliosis convex right. Multiple healed right-sided rib fractures are in cidentally noted. No clavicle fractures. No scoliosis in the lumbar spine noted. Hips appear unrem arkable as do the sacroiliac joints. On the lateral view of the thoracolumbar spine there is no sign ificant disc space narrowing. No compression fractures. IMPRESSION: Very mild thoracic scoliosis which is convex right. There are no obvious developmental anomalies in vertebral bodies. Multiple fractures of right ribs noted/healed DATA REPOSITORY: RADIATION DOSE DELIVERED:
== END 2021-11-28 00:36 ==
PROVIDERS: PCP Family Medicine; Visit Provider Family Medicine
DX: R10.9 Unspecified abdominal pain (principal); Z87.828 Personal history of other (healed) physical injury and trauma; M41.9 Scoliosis, unspecified
CPT/HCPCS: 72081

== ENCOUNTER 2022-06-04 14:36 | Emergency (ER) | payer MEDICAID, SELFPAY ==
[2022-06-04 14:39] VITALS: BP 119/86; PULSE 104; RESP 20; TEMP 36.5; O2SAT 99
[2022-06-04 15:12] LABS: Abs Immature Grans 0.02 10^3/uL (0.0-0.06); Absolute Basophil Count 0.05 10^3/uL (0.0-0.2); Absolute Eosinophil Count 0.15 10^3/uL (0.0-0.7); Absolute Lymphocyte Count 1.96 10^3/uL (1.2-3.4); Absolute Monocyte Count 0.63 10^3/uL (0.1-0.8); Absolute Neutrophil Count 7.54 10^3/uL (1.2-6.7); Basophils % 0.5; Eosinophils % 1.4; HCT 40.6 % (36.0-46.0); HGB 13.6 g/dL (11.2-15.7); Immature Grans % 0.2; Lymphocytes % 18.9; MCH 30.8 pg (27.0-33.0); MCHC 33.5 % (32.0-36.0); MCV 92 fL (80-95); MPV 11.5 fL (8.0-11.0); Monocytes % 6.1; Neutrophils % 72.9; Platelet Count 185 10^3/uL (130-400); RBC 4.42 10^6/uL (3.93-5.22); RDW 12.4 % (11.7-14.6); RDW-SD 41.5 fL; WBC 10.35 10^3/uL (4.4-10.8)
[2022-06-04 15:13] LABS: Bilirubin Small (Negative); Blood Negative (Negative); Clarity Clear (Clear); Glucose Negative (Negative); Ketones >=160 mg/dL (Negative); Leukocyte Esterase Negative (Negative); Nitrite Negative (Negative); Specific Gravity >= 1.030 (1.005-1.025); pH 5.5 (5-8)
[2022-06-04] MEDS: Lactated Ringers 1,000 ML 1000 ML IV ×2 (15:20→16:18)
[2022-06-04] MEDS: Metoclopramide 10 MG/2 ML VIAL IVP (15:21)
--- NOTE | 2022-06-04 15:26 | ED.GENADUL_ITS ---
Discharge Plan Disposition Patient Disposition: HOME Condition: Stable Discharge Details Clinical Impression: Vomiting, Primary Care Provider: Bob Machado ED Provider: Susan James Home Meds and New Rx's Prescriptions: New metoclopramide HCl [Reglan] 10 mg tablet 10 mg PO Q6H PRNQty: 7 0RF magnesium gluconate 30 mg (550 mg) tablet 30 mg PO DAILY Qty: 5 0RF potassium chloride 20 mEq tablet,ER particles/crystals 20 meq PO DAILY Qty: 5 0RF Continued buprenorphine-naloxone [Suboxone] 4-1 mg film 1 film sublingual BID Label Comments: 05/21/22- pt reports on 8 mg (4 mg twice a day, taken with clonidine) of Suboxone through Dr. Machado vit,[id number] 29-1 mg tablet 1 tab PO DAILY Qty: 90 4RF fluoxetine 40 mg capsule 40 mg PO DAILY Qty: 90 3RF clonidine HCl 0.1 mg tablet 0.1 mg PO BID MDD 0.2 mg PRN (Reason: opiate withdrawal) Qty: 90 3RF Discharge Instructions Instructions: (ED) Additional Instructions: may take doxylamine (otc) 10-20 mg every evening for nausea reglan as needed for nausea if uncontrolled with doxylamine Clear liquid diet as tolerated Follow-up with [facility] Referrals: Bob Machado DO [Primary Care Provider] - Discharge Data Discharge Date/Time-TO BE ENTERED AT DEPARTURE: 06/04/22 17:24 Medical Decision Making <VIRAJ Cespedes - Last Filed: 06/05/22 23:12> Patient appears well She has greater than 160 ketones in her urine which suggest that she is quite dehydrated She is getting 2 L of LR She is feeling less nauseous after Reglan, will give popsicle Will likely transition care to oncoming provider pending labs and reassessment for fluid resuscitation Medical Records Medical records reviewed: Yes I reviewed the patient's medical records. Lab Data Lab results reviewed: Yes I reviewed the patient's lab results. <Susan James NP - Last Filed: 06/05/22 00:32> Patient appears well She has greater than 160 ketones in her urine which suggest that she is quite dehydrated She is getting 2 L of LR She is feeling less nauseous after Reglan, will give popsicle Will likely transition care to oncoming provider pending labs and reassessment for fluid resuscitation 1620: SJ: Care assumed from provider (VIRAJ Cespedes) Please see their initial HPI, PE, and documentation. Discussed patient details and case and pending workup and disposition. Patient is hemodynamically stable, and alert and oriented. At the time of signout patient is receiving magnesium, 2 L LR has received Reglan awaiting p.o. challenge and reevaluate 1655: Patient reevaluation, she reports she feels much better after the medications and interventions. Plan to discharge after fluids. HPI <VIRAJ Cespedes - Last Filed: 06/05/22 23:12> General Date/Time Provider Initiated Documentation: 06/04/22 14:38 . HPI Narrative: This 31-year-old female presents approximately 9 weeks with 2 weeks of intermittent nausea and vomiting. She has been nauseous throughout her per patient. She has been having trouble holding down her medication secondary to nausea. She denies any chest pain or shortness of breath. She has intermittent abdominal pain predominantly with vomiting. She denies any fever or chills. She denies any diarrhea. Denies any blood in vomitus. She has a reported positive IUP on her ultrasound that was performed approximately 2 weeks ago. She does have prior history of ectopic but there was clearly visualized IUP for the patient on her lung ultrasound. She denies any urinary complaints. She is on chronic Suboxone use and denies any illicit drug use. She denies any change in medication. Related Data Home Medications Medication Instructions Recorded Confirmed fluoxetine 40 mg capsule 40 mg PO DAILY #90 caps 03/23/21 06/04/22 clonidine HCl 0.1 mg tablet 0.1 mg PO BID PRN opiate 04/09/22 06/04/22 withdrawal #90 tabs vits,calcium no.78-iron 1 tab PO DAILY #90 tabs 05/06/22 06/04/22 fumarate-folic acid 29 mg-1 mg tablet buprenorphine 4 mg-naloxone 1 mg 1 film sublingual BID 05/21/22 06/04/22 sublingual film (Suboxone) magnesium gluconate 30 mg (550 mg) 30 mg PO DAILY #5 tabs 06/04/22 tablet metoclopramide HCl 10 mg tablet 10 mg PO Q6H PRN #7 tabs 06/04/22 (Reglan) potassium chloride 20 mEq 20 meq PO DAILY #5 tabs 06/04/22 tablet,extended release(part/cryst) Previous Rx's Medication Instructions Recorded fluoxetine 40 mg capsule 40 mg PO DAILY #90 caps 03/23/21 clonidine HCl 0.1 mg tablet 0.1 mg PO BID PRN opiate 04/09/22 withdrawal #90 tabs vits,calcium no.78-iron 1 tab PO DAILY #90 tabs 05/06/22 fumarate-folic acid 29 mg-1 mg tablet magnesium gluconate 30 mg (550 mg) 30 mg PO DAILY #5 tabs 06/04/22 tablet metoclopramide HCl 10 mg tablet 10 mg PO Q6H PRN #7 tabs 06/04/22 (Reglan) potassium chloride 20 mEq 20 meq PO DAILY #5 tabs 06/04/22 tablet,extended release(part/cryst) Allergies Allergy/AdvReac Type Severity Reaction Status Date / Time Penicillins Allergy Anaphylaxsi Verified 06/04/22 14:44 s General Stated Complaint: Abd Prob ADY: 3 Review of Systems <VIRAJ Cespedes - Last Filed: 06/05/22 23:12> All systems reviewed & are unremarkable except as noted in HPI and below PFSH <VIRAJ eCspedes - Last Filed: 06/05/22 23:12> All Active Problems (Updated 06/04/22 @ 15:46 by VIRAJ Cespedes) Vomiting (Acute) (Acute) Scoliosis (Acute) Menstrual migraine (Acute) Hyperhidrosis (Acute) Opioid dependence on agonist therapy (Chronic) Tobacco use disorder (Chronic) Depressive disorder (Chronic) Medical History History of ectopic Pityriasis versicolor Secondary female infertility Surgical History History of unilateral salpingectomy L fallopian tube to treat L sided Family History Mother Breast cancer Hypertension Father Hypertension Social History Smoking/Tobacco Use Status: Current every day Tobacco Type: cigarettes Smoking risk assessment performed?: Yes Alcohol Intake: former Details: [facility] in [facility] 28 day program - last drjim 01/18/19 Drug use: Current Sobriety Substance use type: marijuana Adopted: No Caregiver/Support person: No Foster care: No Household members: significant other and children Housing: apartment Number of Children: 1 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 Current gender identity: female What is your relationship status?: living with partner Panel score (0-1 are the most socially isolated patients): 1 What type of physical activity do you participate in: none Frequency: 3-4 times per week Seatbelt use: always 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 Working smoke detector in home: Yes Fire extinguisher in home: Yes Carbon monox detector in home: Yes Do you feel safe at home: Yes Do you feel safe in your relationship?: Yes History History 4 Para 1 Hx # Term Pregnancies Multiple births Hx # Pregnancies Ectopic pregnancies 1 AB induced 1 Hx Number of Living Children AB spontaneous Exam <VIRAJ Cespedes - Last Filed: 06/05/22 23:12> Const General: cooperative, comfortable and no acute distress HENMT Mouth: oral mucosae normal Eyes Pupils: PERRL Chest Chest: normal inspection of the chest Resp Effort & Inspection: normal respiratory effort Cardio Rate: regular rate GI Inspection: normal to inspection Other: Nontender abdominal exam Neuro General: patient alert Course <VIRAJ Cespedes - Last Filed: 06/05/22 23:12> Vital Signs Vital signs: Vital Signs Temperature 36.5 C 06/04/22 14:39 Pulse 104 H 06/04/22 14:39 Respiratory Rate 20 06/04/22 14:39 Blood Pressure 119/86 06/04/22 14:39 Pulse Oximetry 99 06/04/22 14:39 Temperature 36.5 C 06/04/22 14:39 Temperature Source Skin 06/04/22 14:39 Pulse 104 H 06/04/22 14:39 Respiratory Rate 20 06/04/22 14:39 Respiratory Effort 06/04/22 15:16 Blood Pressure 119/86 06/04/22 14:39 Blood Pressure Position Sitting 06/04/22 14:39 Pulse Oximetry 99 06/04/22 14:39 Oxygen Delivery Method Room Air 06/04/22 14:39 Oxygen Flow Rate 0 06/04/22 14:39 Pain Level 4 06/04/22 15:16 Lab/Test Results Lab/Test Results: Laboratory Tests Range/Units 06/04/22 06/04/22 15:02 15:02 WBC (4.4-10.8) 10^3/uL 10.35 RBC (3.93-5.22) 10^6/uL 4.42 Hgb (11.2-15.7) g/dL 13.6 Hct (36.0-46.0) % 40.6 MCV (80-95) fL 92 MCH (27.0-33.0) pg 30.8 MCHC (32.0-36.0) % 33.5 RDW (11.7-14.6) % 12.4 Plt Count (130-400) 10^3/uL 185 MPV (8.0-11.0) fL 11.5 H Immature Gran % 0.2 Neutrophils % 72.9 Lymphocytes % 18.9 Monocytes % 6.1 Eosinophils % 1.4 Basophils % 0.5 Nucleated RBC % (0.0-0.3) % 0.0 Absolute Neutrophils (1.2-6.7) 10^3/uL 7.54 H Absolute Lymphocytes (1.2-3.4) 10^3/uL 1.96 Absolute Monocytes (0.1-0.8) 10^3/uL 0.63 Absolute Eosinophils (0.0-0.7) 10^3/uL 0.15 Absolute Basophils (0.0-0.2) 10^3/uL 0.05 Urine Color (Yellow) Yellow Urine Clarity (Clear) Clear Urine pH (5-8) 5.5 Ur Specific [place] (1.005-1.025) >= 1.030 H Urine Protein (Negative) mg/dL Negative Urine Ketones (Negative) mg/dL >=160 H Urine Blood (Negative) Negative Urine Nitrite (Negative) Negative Urine Bilirubin (Negative) Small H Urine Urobilinogen (Up TO 0.2) EU/dL 1.0 H Ur Leukocyte Esterase (Negative) Negative Urine Glucose (Negative) mg/dL Negative Sign Out <VIRAJ Cespedes - Last Filed: 06/05/22 23:12> Sign Out Data: Sign Out Comment: pending po challenge, fluids, reassessment Last updated by Eleanor Rubi PA at 06/04/22 15:49
[2022-06-04 15:31] LABS: ALT 18 U/L (14-59); AST 16 U/L (15-37); Albumin 3.6 g/dL (3.4-5.0); Alkaline Phosphatase 54 U/L (46-116); Anion Gap 10.9 mmol/L (3-11); BUN 10 mg/dL (7-18); Bilirubin, Total 0.4 mg/dL (0.2-1.0); CO2 23.1 mmol/L (21.0-32.0); CREATININE 0.5 mg/dL (0.55-1.02); Calcium 9.1 mg/dL (8.5-10.1); Chloride 99 mmol/L (98-107); Glucose 84 mg/dL (74-106); Lipase 32 U/L (73-393); Magnesium 1.5 mg/dL (1.8-2.4); Potassium 3.4 mmol/L (3.5-5.1); Sodium 133 mmol/L (136-145); Total Protein 7.5 g/dL (6.4-8.2)
[2022-06-04] MEDS: MAGNESIUM SULFATE 1 GM/100 ML BAG IVPB (15:48)
[2022-06-04 16:55] VITALS: BP 121/77; PULSE 88; RESP 18; O2SAT 99
== END 2022-06-04 17:24 | disposition home or self-care (01) ==
PROVIDERS: Physician Assistant; Emergency Provider Registered Nurse Emergency; PCP Family Medicine
DX: O21.9 Vomiting of pregnancy, unspecified (principal); O99.331 Smoking (tobacco) complicating pregnancy, first trimester; F17.210 Nicotine dependence, cigarettes, uncomplicated; Z3A.09 9 weeks gestation of pregnancy
CPT/HCPCS: 80053; 83690; 96361; 96365; 96375; 99284; 81003; 83735; 85025; J2765; J3475

== ENCOUNTER 2022-06-20 01:15 | Outpatient (CLI) | payer MEDICAID, SELFPAY ==
--- OUTSIDE RECORDS SUMMARY | 2022-06-20 01:16 | XMS_ITS | Encounter Summary ---
:1990 Author Organization [facility] [place] [address] Care Team Providers Name Role Phone Bob Machado DO Primary Care Provider Reason for Visit Reason Comments Skin Check Encounter Details Date Type Department Care Team Description 06/12/2021 Office Visit Dermatology at [facility] Terrence Camilo MD Hyperhidrosis [address] [facility] [address] [place] [address] DERMATOLOGY [phone] [place], [place] [address] (Wo rk) Social History Tobacco Use Types Packs/Day Years Used Date Current Every Day Smoker Smokeless Tobacco: Never Used Comments: 3-6 cigs per day Alcohol Use Standard Drinks/Week Comments Not Currently 0 (1 standard drink = 0.6 oz pure alcoho l) Sex Assigned at Date Recorded Not on file documented as of this encounter Progress Notes Terrence Camilo MD - 06/12/2021 2:00 PM EDT Problem: Hyperhidrosis Latricia is a 30-year-old woman who says since she was a child has had problems with hyperhidrosis ofthe palms and feet. She has tried what sounds like Drysol in the past without benefit. She wonders what could be tried for this. She is heard of Botox and iontophoresis. She is actively trying to become and is not sure whether or not she is now. The patient is seen in consultation today for Bob Machado DO Physical examination reveals a pleasant 30-year-old woman whose palmar hands are glistening today with sweat and she assures me the same is true of her feet as well. She is no swelling elsewhere. She has no swelling of the axillary vaults. Assessment and plan: Palmar plantar hyperhidrosis 1. Patient may be now or may soon become so. Would not recommend glycopyrrolate or oral therapies. 2. Botox is one option that would require nerve block and then injection on a every 6 month basis. Also not a good option during 3. Could consider option of iontophoresis. We will research this for her. She would be interested inpurchasing xkt-qz-ykiwjq a unit if it could be reliably expected to work 4. Discussed with her the good data on iontophoresis treatments and will get back to her within 7 to10 days on my findings of what is available currently CC: Bob Machado DO documented in this encounter Plan of Treatment Not on filedocumented as of this encounter Visit Diagnoses Diagnosis Hyperhidrosis Primary focal hyperhidrosis documented in this encounter Care Teams Welder Production Line Gas Relationship Specialty Start Date End Date Bob Machado DO PCP - General Family Medicine 12/14/[address] [place] [address] documented as of this encounter
--- OUTSIDE RECORDS SUMMARY | 2022-06-20 01:16 | XMS_ITS | Encounter Summary ---
:1990 Author Organization [facility] [place] [address] Care Team Providers Name Role Phone Bob Machado DO Primary Care Provider Encounter Details Date Type Department Care Team Description 06/18/2021 Telephone Dermatology at [facility] Lindsay Aviles LPN [address] [place] [address] Social History Tobacco Use Types Packs/Day Years Used Date Current Every Day Smoker Smokeless Tobacco: Never Used Comments: 3-6 cigs per day Alcohol Use Standard Drinks/Week Comments Not Currently 0 (1 standard drink = 0.6 oz pure alcoho l) Sex Assigned at Date Recorded Not on file documented as of this encounter Miscellaneous Notes Telephone Encounter - Lindsay Aviles LPN - 07/02/2021 1:16 PM EDT Pt returning Dr. Ricketts call. She doesn't have the money to purchase the iontophoreses unit at thistime. She will call Dr. Camilo when her finances will permit the purchase. Telephone Encounter - Lindsay Aviles LPN - 06/18/2021 9:20 AM EDT Re: Hyperhidrosis Dr. Camilo attempted to contact patient to discuss Iontophoreses units on 06/15/21. Message left. Today I attempted to reach out to patient to answer any questions she might have about the Iontophoreses unit; message left. documented in this encounter Plan of Treatment Not on filedocumented as of this encounter Visit Diagnoses Not on filedocumented in this encounter Care Teams Operating Room Rn Relationship Specialty Start Date End Date Bob Machado DO PCP - General Family Medicine 12/14/[address] [place] [address] documented as of this encounter
--- OUTSIDE RECORDS SUMMARY | 2022-06-20 01:16 | XMS_ITS | Clinical Summary ---
:1990 Author Organization [facility] [place] [address] Care Team Providers Name Role Phone Bob Machado Primary Care Provider Allergies Active Allergy Reactions Severity Noted Date Comments Penicillins 03/04/2021 Medications Medication Sig Dispensed Refills Start Date End Date Status acetaminophen (Tylenol) Take 2 tablets 30 tablet 0 03/04/2021 Active 325 mg Tablet by mouth every 6 hours as needed for Pain. docusate sodium Take 1 capsule 10 capsule 0 03/04/2021 Active (Colace) 50 mg Capsule by mouth 2 times daily as needed for Constipation. ibuprofen Take 3 tablets 30 tablet 0 03/04/2021 Acti ve (Advil;Motrin) 200 mg by mouth every 6 Tablet hours as needed for Pain. oxyCODONE (Roxicodone) Take 1 tablet by 5 tablet 0 03/04/2021 Active 5 mg Tablet mouth every 4 hours as needed for Pain. polyethylene glycoL Take 17 g by 14 each 0 03/04/2021 Active (Miralax) 17 gram mouth daily as Powder in Packet needed. vit Take 1 tablet by 0 04/23/2021 Active calc,iron,folic mouth. (PRENAT.VITS,ALLY,MIN-IR ON-FOLIC ORAL) Suboxone 8-[address] ONE FILM 0 06/04/2021 Active UNDER THE TONGUE TWICE A DAY FLUoxetine (PROzac) 40 TAKE ONE CAPSULE 0 03/24/2021 Active mg Capsule BY MOUTH EVERY DAY Active Problems Problem Noted Date Ectopic 03/04/2021 Anxiety and depression 03/04/2021 Overview: Takes fluoxetine Substance use disorder 03/04/2021 Overview: On Suboxone x 11 years, takes 8mg BID. Marijuana use 03/04/2021 Overview: Daily Tobacco use 03/04/2021 Overview: Smokes up to 1/2PPD Immunizations Name Administration Dates Next Due Rho (D) Immune Globulin, IV or IM 03/04/2021 Family History Medical History Relation Comments Coronary Artery Disease Father Breast Cancer Mother Relation Status Comments Father Mother Social History Tobacco Use Types Packs/Day Years Used Date Current Every Day Smoker Smokeless Tobacco: Never Used Comments: 3-6 cigs per day Alcohol Use Standard Drinks/Week Comments Not Currently 0 (1 standard drink = 0.6 oz pure alcoho l) Sex Assigned at Date Recorded Not on file Last Filed Vital Signs Vital Sign Reading Time Taken Comments Blood Pressure 98/54 03/04/2021 11:59 AM EDT Pulse 85 03/04/2021 10:45 AM EDT Temperature 36.1 ??C (97 ??F) 03/04/2021 10:45 AM EDT Respiratory Rate 18 03/04/2021 10:45 AM EDT Oxygen Saturation 98% 03/04/2021 11:59 AM EDT Inhaled Oxygen Concentration - - Weight 72.6 kg (160 lb) 03/04/2021 7:24 AM EDT Height 167.6 cm (5' 6) 03/04/2021 7:24 AM EDT Body Mass Index 25.82 03/04/2021 7:24 AM EDT Plan of Treatment Health Maintenance Due Date Last Done Comments Covid-19 Vaccine (#1) 1994 Pneumococcal Vaccine: At-Risk 5-64yrs (1 - PCV) 1995 HIV screen 2007 Hepatitis C Screening 2007 Lipid Screening 2007 Tdap adult 2008 Tetanus vaccine 2008 HPV test 2019 PAP Smear 2019 Influenza (Flu) vaccine (1 of 1 - Influenza standard 08/01/2022 series) Insurance Payer Benefit Plan / Subscriber ID Effective Dates Phone Addre ss Type Group MEDICAID [place]ICAID [place] [id number] 2019-Prese [phone] [address] [facility] [address] [place], [place] [phone] Advance Directives Latest Code Status on File Code Status Date Activated Date Inactivated Comments Attempt Cardiopulmonary Resuscitation - 03/04/2021 6:57 AM 2:37 PM Inpatient Code Status decision made by: Patient Care Teams Creative Technologist Relationship Specialty Start Date End Date Bob Machado DO PCP - General Family Medicine 12/14/[address] [place] [address]
--- OUTSIDE RECORDS SUMMARY | 2022-06-20 01:16 | XMS_ITS | Encounter Summary ---
:1990 [place] [address] Care Team Providers Name Role Phone Bob Machado DO Primary Care Provider Encounter Details Date Type Department Care Team Description 03/04/2021 Anesthesia Event Main Operating Room Minoo Albarran MD [facility] [place] [address] [facility] Karel Mclean MD [facility] [place] [address] [place] [address] Anesthesia Record Procedure Summary Procedure Name Responsible Anesthesia Start Anesthesia Stop Anesthesiologist Time Time LAPAROSCOPYY, ECTOPIC, Minoo Peace, 03/04/21 0748 0 03/04/21 0936 W/ SALPINGECTOMY &/OR MD OOPHORECTOMY (WRVU 12.11) (Left Uterus) Events Date Time Event Comment 03/04/2021 0733 0748 AN Verify 0748 Start 0748 An Start Data 0755 An Induction 0756 An Intubation 0808 Anesthesia Ready 0827 Procedure Start 0840 Quick Note >500cc partially congealed blood found in abdomen 0924 Extubation/LMA Out 0929 an stop data 0935 Recovery or ICU Handoff Patient care was transferred to the destination unit staff after review of the patient's medica l history, current anesthetic/surgi yobany status and plan, according to the Provider Handoff Checklist. 0936 Stop Name Total Midazolam 2 mg fentaNYL 200 mcg IV Lidocaine 100 mg Propofol 200 mg Rocuronium 50 mg PHENYLephrine 120 mcg Ondansetron 8 mg Dexamethasone 8 mg Succinylcholine 100 mg Propofol INF 769.56 mg Dexmedetomidine 24 mcg Sugammadex 200 mg Lactated Ringers 1,500 mL Agents Name O2 Air N2O Sevoflurane (et) Blood No blood administrations on file. Lines, Drains, and Airways Type Details Placement Removal Incision 03/04/21; 0828; 03/04/21 0828 by abdomen; laparoscopic Brigid Tanner, YANA punctures (specify) PIV 03/04/21; 0300; median 03/04/21 0300 by 09/05/21 1650 by cubital vein Rosi Rojas, Tomasz Coleman (antecubital fossa), left; [id number]-[id number] catheter system; 18 gauge; OSH; 09/05/21 (LDA Cleanup utility RA#[id number]); 1650 (LDA Cleanup utility RA#[id number]) Urethral Catheter 03/04/21; 0800; 03/04/21 0800 by 03/04/21 0912 by Abdominal surgery; Brigid Tanner, Brigid Arroyo, YANA indwelling double lumen catheter; latex; 14; inserted at this facility (Inserted by Dr Krause.); 1; 5; 10; other (see comments) (GA); drainage bag to dependent drainage; 03/04/21; 0912 (yield 250 ml) ETT Mask Ventilation: Not 03/04/21 0801 by 03/04/21 0924 by Attempted (0); ETT Bj De León Christopher Type: Cuffed, Oral; ETT MD Fannie Greco MD Size: 7 mm; Mac Blade: 3; Notes: Asleep, Pre-O2, RSI, Cricoid Pressure, Stylette; Attempts: 1; Laryngoscopy Grade: 1; ETT Placement Verified By: Capnometry, Visual; Secured at Teeth: 22 cm; Inserted by: Genet PIV 03/04/21; 0816; 03/04/21 0816 by 09/05/21 1650 b y cephalic vein (lateral Bj De León Andrea side of arm), right; MD Fannie [id number]-nbfqsc catheter system; Anatomical Landmarks; 16 gauge; Genet; 09/05/21 (LDA Cleanup utility RA#[id number]); 1650 (LDA Cleanup utility RA#[id number]) documented in this encounter Social History Tobacco Use Types Packs/Day Years Used Date Current Every Day Smoker Comments: 3-6 cigs per day Alcohol Use Standard Drinks/Week Comments Not Currently 0 (1 standard drink = 0.6 oz pure alcoho l) Sex Assigned at Date Recorded Not on file documented as of this encounter OR Notes Anesthesia Postprocedure Evaluation - Minoo Peace MD - 03/04/2021 9:40 AM EDT Department of Anesthesiology Post-procedure Note Patient: Latricia Peralta Procedure Summary Date: 03/04/21 Room / Location: [address] MAIN OR Anesthesia Start: 747 Anesthesia Stop: 935 Procedure: LAPAROSCOPYY, ECTOPIC, W/ SALPINGECTOMY &/OR OOPHORECTOMY (WRVU 12.11) (Left Uterus)Diagnosis: (Left sided ectopic ) Surgeons: Roberta Parker MD Responsible Provider: Minoo Peace MD Anesthesia Type: general ASA Status: 2 - Emergent All Anesthesia Providers: Anesthesiologist: Minoo Peace MD Cnc Lathe Machinist: Bj De León MD Vitals Value Taken Time BP 116/66 03/04/21 0932 Temp Pulse 72 03/04/21 0939 Resp 16 03/04/21 0939 SpO2 100 % 03/04/21 0939 Pain Level Vitals shown include unvalidated device data. Patient Location: PACU/[facility] Level of Consciousness: Awake and Alert Pain Management: Satisfactory Analgesia PONV: None Cardiovascular Status: Hemodynamically Stable and At Baseline Respiratory Status: Supplemental O2 (NC or FM) and At Baseline Postoperative Fluid Status: Intravascular EUvolemia Possible Anesthetic Complications: NONE apparent at time of evaluation Final Primary Anesthesia Type: General (The anesthetic type performed was the same as planned.) Comments: Following extubation, patient's oral secretions stimulated partial laryngospasm, which resolved with jaw thrust and CPAP. Patient continued to move air on her own throughout. Anesthesia Preprocedure Evaluation - Minoo Peace MD - 03/04/2021 6:23 AM EDT Pre-Anesthesia Evaluation for: Latricia Peralta a 30 y.o. female. Procedure(s): LAPAROSCOPY, ECTOPIC , W/O SALPINGECTOMY &/OR OOPHORECTOMY (VU 12.29) There are no problems to display for this patient. History reviewed. No pertinent past medical history. History reviewed. No pertinent surgical history. Social History Tobacco Use ??? Smoking status: Not on file Substance Use Topics ??? Alcohol use: Not on file Social History Substance and Sexual Activity Drug Use Not on file Allergies Allergen Reactions ??? Pcn [Penicillins] Medications: MAR and/or home medications have been reviewed. Physical Exam: Preprocedure Vitals Current as of 03/04/21 0623 BP: 114/64 Pulse: 79 Resp: 14 SpO2: 99 Temp: Height: Weight: BMI: IBW: Last edited 03/04/21 06 by AT Airway Assessment: Mallampati: I TM distance: >3 FB Neck ROM: full Cardiovascular Assessment: Rhythm: regular PE comment: Tachycardic Pulmonary Assessment: unlabored breathing Dental Assessment: - normal exam Misc Assessment: IV access: Peripheral line Last Filed Perioperative Cognitive Screening None Anesthesia Plan: ASA 2 emergent general, with a(n) intravenous induction 30 yo F with pmh of ETOH abuse, opoioid abuse (on suboxone), == depression, tobacco use, MJ use herewith ectopic here for Laop SPO. Allergy: -- Pcn (Penicillins) EKG: N/A Patient Vitals in the past 24 hrs: 03/04/21 0600, BP:114/64, Pulse:79, Resp:14, SpO2:99 % 03/04/21 0545, BP:112/60, Pulse:77, Resp:15, SpO2:100 % 03/04/21 0530, BP:116/70, Pulse:72, Resp:9, SpO2:100 % 03/04/21 0515, BP:114/71, Pulse:67, Resp:18, SpO2:97 % 03/04/21 0500, BP:112/71, Pulse:74, Resp:13, SpO2:98 % 03/04/21 0345, Pulse:72, Resp:17, SpO2:97 % 03/04/21 0300, Pulse:71, Resp:13, SpO2:99 % 03/04/21 0200, BP:116/82, Pulse:84, Resp:27, SpO2:97 % BP Readings from Last 3 Encounters: 03/04/21 : 114/64 Labs: Lab Results Component Value Date WBC 10.9 (H) 03/04/2021 HGB 9.8 (L) 03/04/2021 HCT 28.7 (L) 03/04/2021 MCV 95.3 (H) 03/04/2021 PLATELET 182 03/04/2021 Lab Results Component Value Date NA 137 03/04/2021 K 4.4 03/04/2021 CL 103 03/04/2021 CO2 25 03/04/2021 BUN 12 03/04/2021 CREATININE 0.52 (L) 03/04/2021 GLUCOSE 100 03/04/2021 CALCIUM 8.9 03/04/2021 ESTGFR 127 03/04/2021 Lab Results Component Value Date ALT 7 03/04/2021 AST 13 03/04/2021 ALKPHOS 50 03/04/2021 BILITOT <0.2 (L) 03/04/2021 BILIDIR <0.1 03/04/2021 ALBUMIN 3.7 03/04/2021 PROT 6.1 03/04/2021 Lab Results Component Value Date PT 11.7 03/04/2021 PTT 21 (L) 03/04/2021 No results found for: TSH, G6GQKDE, TT4, THYROIDAB No results found for: HA1C Glucose Lvl Date Value Ref Range Status 03/04/2021 100 65 - 199 mg/dL Final Comment: Diabetes: >=200 mg/dL plus symptoms >4 METS No active GERD Plan: GETA/RSI with PIV access and standard ASA monitors. The patient was informed of the risks, benefits and alternatives of anesthesia. These risks included, but were not limited to, post-operative nausea and/or vomiting, pain, sore throat, dental/lip trauma, and other rare but serious complications such as major organ damage, awareness, severe allergic reactions, position-related nerve injuries, corneal abrasion/blindness and need blood transfusions. Allquestions were sought and answered. Consent was signed and placed in chart. Region - Other Informed Consent: Anesthetic plan and risks discussed with patient and spouse. Plan discussed with resident and attending. PAT Clinic Note documented in this encounter Plan of Treatment Not on filedocumented as of this encounter Visit Diagnoses Not on filedocumented in this encounter Administered Medications Inactive Administered Medications - up to 3 most recent administrations Medication Order MAR Action Action Date Dose Rate Site dexamethasone (Decadron) injection Given 03/04/2021 8:15 AM EDT 8 mg Intravenous, PRN, Starting on 03/04/21 at 0815, Until 03/04/21 at 0939, Anesthesia Intra-op, Routine dexmedetomidine (Precedex) (4 mcg/mL) bolus Given 03/04/2021 8:2 6 AM EDT 8 mcg injection (Anesthsia) Intravenous, PRN, Starting on 03/04/21 at 0800, Until 03/04/21 at 0939, Anesthesia Intra-op, Routine Given 03/04/2021 8:06 AM EDT 8 mcg Given 03/04/2021 8:00 AM EDT 8 mcg fentaNYL (pf) (50 mcg/mL) multi-dose Given 03/04/2021 8:28 AM ED T 100 mcg injection Intravenous, PRN, Starting on 03/04/21 at 0755, Until 03/04/21 at 0939, Anesthesia Intra-op, Routine Given 03/04/2021 7:55 AM EDT 100 mcg lactated ringers infusion New Bag 03/04/2021 8:39 AM EDT Intravenous, CONTINUOUS PRN, Starting on 03/04/21 at 0748, Until 03/04/21 at 0939, Anesthesia Intra-op New Bag 03/04/2021 7:48 AM EDT lidocaine (pf) (Xylocaine) (20 mg/mL) 2% Given 03/04/2021 7:55 A M EDT 100 mg injection syringe Intravenous, PRN, Starting on 03/04/21 at 0755, Until 03/04/21 at 0939, Anesthesia Intra-op, Routine midazolam (pf) (Versed) (1 mg/mL) multi-dose Given 03/04/2021 7: 48 AM EDT 2 mg injection Intravenous, PRN, Starting on 03/04/21 at 0748, Until 03/04/21 at 0939, Anesthesia Intra-op, Routine ondansetron (pf) (Zofran) (2 mg/mL) inje ction Given 03/04/2021 9:11 AM EDT 4 mg Intravenous, PRN, Starting on 03/04/21 at 0815, Until 03/04/21 at 0939, Anesthesia Intra-op, Routine Given 03/04/2021 8:15 AM EDT 4 mg PHENYLephrine in NS (PF) (BOOM-SYNEPHRINE) 0.8 Given 8:21 AM EDT 40 mcg mg/10 mL (80 mcg/mL) multi-dose injection Syrg Intravenous, PRN, Starting on 03/04/21 at 0803, Until Fri03/04/21 at 0939, Anesthesia Intra-op, Routine Given 03/04/2021 8:03 AM EDT 80 mcg propofoL (Diprivan) 10 mg/mL bolus injection Given 03/2021 7:55 AM EDT 200 mg (Anesthesia) Intravenous, PRN, Starting on 03/04/21 at 0755, Until 03/04/21 at 0939, Anesthesia Intra-op propofoL (Diprivan) infusion Rate/Dose 03/04/2021 9:00 200 mcg/kg/min 87.12 Intravenous, CONTINUOUS PRN, Change AM EDT mL/hr Starting on 03/04/21 at 0800, Until 03/04/21 at 0939, Anesthesia Intra-op, Routine Rate/Dose Change 03/04/2021 8:52 AM EDT 100 mcg/kg/min 43.56 mL/hr New Bag 03/04/2021 8:00 AM EDT 50 mcg/kg/min 21.78 mL/hr rocuronium (Zemuron) (10 mg/mL) multi-dose Given 03/04/2021 8:00 AM EDT 50 mg injection Intravenous, PRN, Starting on 03/04/21 at 0800, Until 03/04/21 at 0939, Anesthesia Intra-op, Routine succinylcholine (Anectine;Quelicin) (20 Given 03/04/2021 7:55 AM EDT 100 mg mg/mL) injection Intravenous, PRN, Starting on 03/04/21 at 0755, Until 03/04/21 at 0939, Anesthesia Intra-op, Routine sugammadex (Bridion) 100 mg/mL injection Given 03/04/2021 9:05 AM EDT 200 mg Intravenous, PRN, Starting on 03/04/21 at 0905, Until 03/04/21 at 0939, Anesthesia Intra-op, Routine documented in this encounter Care Teams Well Logging Mud Analysis Captain Relationship Specialty Start Date End Date Bob Machado DO PCP - General Family Medicine 12/14/[address] [place] [address] documented as of this encounter
--- OUTSIDE RECORDS SUMMARY | 2022-06-20 01:17 | XMS_ITS | Encounter Summary ---
:1990 Author Organization [facility] Address [address] [place] [address] Care Team Providers Name Role Phone Unknown, Provider Primary Care Provider Encounter Details Date Type Department Care Team Description 03/22/2019 Results Only [facility]- Bob Romero, DO [phone] [address] [place] [phone] (Wo rk) Social History Tobacco Use Types Packs/Day Years Used Date Never Assessed Sex Assigned at Date Recorded Not on file documented as of this encounter Plan of Treatment Not on filedocumented as of this encounter Procedures Procedure Name Priority Date/Time Associated Diagnosis Comme nts PAP TEST- RESULT Routine 03/22/2019 0:00 EDT Resu lts for this ONLY procedure are i n the results section. documented in this encounter Results PAP TEST- RESULT ONLY (03/22/2019 0:00 EDT) Pathology CYTOPATHOLOGY REPORT [facility] MEDICAL Report: [facility] Reports generated via electronic interface contain jostin ginal data; SERVICES however they are lacking the format of the original re port. Caution should be taken when reading/interpreting unfo rmatted reports. Name: ? TESFAYE KENDALL ? Accession #: ? [id number] ? : ? 1990 (Age: 28) ??F ?Collect Date: ? 03/22/2019 ? Location: ? [facility] ? Receive Date: ? 03/23/20 19 ? Provider: BOB MORIN DO Copy to: ? Final Report SPECIMEN ADEQUACY ? Satisfactory for Evaluation - transformation zone component present - scant squamous epithelial component secondary to exc essive inflammation - scant squamous epithelial component, contamination present, possibly lubricant - scant squamous epithelial component GENERAL CATEGORIZATION ? Epithelial Cell Abnormality INTERPRETATION ? Squamous Cell Abnormality - Atypical squamous c ells, undetermined significance (ASC-US). EDUCATIONAL NOTES/RECOMMENDATIONS ? [facility] recommends foll owing ASCCP's 2012 Updated Consensus Guidelines for the Management of Abnormal Cervical Cancer Screening T ests and Cancer Precursors (JLGTD, 2013; 17(5):S1-S27). ??Conse nsus guidelines are available online at www.asccp.org. Case reviewed at Intradepartmental Consultation Confer ence Last Menstrual Period: >8 years Hormonal/Contraceptive status: Depo-Provera Other: Additional clinical information: Z12.4 Z11.51 Specimen/Source: ??Pap Test, Endocervix, ThinPrep Imag ing System with manual evaluation Document reviewed and electronically signed by: ? ANA DUNAWAY MD ? Report ??Date: 03/25/2019 16:00 HPV with Pap Test ? Date Ordered: ? 03/25/2019 ? Status: ?? Signed Out ?Date Complete: ? 03/29/2019 ? By: ??Sy stem Interface ? Date Reported: ? 03/29/2019 ? Interpretation RESULT: Negative for HPV. No E6 or E7 mRNA is detected from HPV types 16,18,31,3 3,35, 39,45,51,52,56,58,59,66, and 68 by hemodialysis lab technician media jason amplification. Comments Document reviewed and electronically signed by: ? System Interface ? Report date: 03/29/2019 By the signature above, the attending physician certif ies that he/she has personally conducted a gross and/or microscopic examin ation of the described specimens and rendered or confirmed the above diagnosi s. End of Report Specimen Performing Organization Address City/State/ZIP Code Phon e Number [facility] [address] [place] [address] SERVICES documented in this encounter Visit Diagnoses Not on filedocumented in this encounter Care Teams Aluminum Pourer Relationship Specialty Start Date End Date Unknown, Provider, PCP - General 02/04/13 04/12/19 documented as of this encounter
--- OUTSIDE RECORDS SUMMARY | 2022-06-20 01:17 | XMS_ITS | Encounter Summary ---
:[address] [place] [address] Care Team Providers Name Role Phone Bob Machado Primary Care Provider Reason for Visit Reason Comments Abdominal Pain Encounter Details Date Type Department Care Team Description 03/04/2021 Emergency PACU at Osbaldo Parkinson MD Abdominal [facility] without intrauterine [facility] [place] [address] [place] [id number] [phone] (Wo rk) Social History Tobacco Use Types Packs/Day Years Used Date Current Every Day Smoker Comments: 3-6 cigs per day Alcohol Use Standard Drinks/Week Comments Not Currently 0 (1 standard drink = 0.6 oz pure alcoho l) Sex Assigned at Date Recorded Not on file documented as of this encounter Last Filed Vital Signs Vital Sign Reading [...] Mass Index 25.82 03/04/2021 7:24 AM EDT documented in this encounter Discharge Instructions Patient Natacha Arevalo MD - 03/04/2021 10:08 AM EDT Images from the original note were not included. Follow up appointments and recommendations: If not made at the time of discharge, please call your primary CENTER DIRECTOR LEAD TEACHER provider for a follow up appointment. ([phone]) Follow-up appointment with Dr Faustin requested for 2w from your surgery. Patient Discharge Instructions: For problems or concerns related to this hospitalization call: [phone] weekdays, or [phone] weekends or nights. Call your doctor if you develop: --A fever over 101 degrees F --Severe pain -- Nausea / vomiting, diarrhea, intolerance of food or drink --Heavy vaginal bleeding, saturating 1+ heavy pad per hour --Urinary frequency, urgency, or feeling of incomplete emptying of the bladder --If your wound is red, hot, swollen, tender or draining yellow/green fluid Activity level: You should be able to resume your usual activities of daily living (eating, drinking, washing, walking.). Diet: Regular as tolerated, drink plenty of fluids. Shower/Bath: Showering is fine. Short baths are OK but you should avoid having any abdominal incision submerged for more than 10-15 minutes for the next 2 weeks. Wound Care: You may remove your dressing the day after you leave the hospital if they were not removed for you. Under the dressings will be small pieces of paper tape over your incision. This tape can get wet in the shower, just ensure that you dry them well. These pieces of tape should fall off within 5-7 days; if they have not, please remove them after one week. You have stitches just under the skin and these will dissolve on their own over the next couple of weeks. They do not need to be removed or altered. When showering rinse with water, do not use soap on the areas, and pat dry well. Pain medications include Ibuprofen, Tyelnol and oxycodone ??? Please alternate Ibuprofen 600 mg every 6 hours with food with Tylenol 650 mg every 6 hours around the clock for the next several days and then after that use it only as needed. Drink plenty of fluids while you are home with this medication ??? Please use the oxycodone 5 mg every 4 hours as needed for pain that breaks through the Ibuprofen and Tylenol documented in this encounter Medications at Time of Discharge Medication Sig Dispensed Refills Start Date End Date acetaminophen (Tylenol) Take 2 tablets by 30 tablet 0 03/04 325 mg Tablet mouth every 6 hours as needed for Pain. docusate sodium (Colace) Take 1 capsule by 10 capsule 0 03/2021 50 mg Capsule mouth 2 times daily as needed for Constipation. ibuprofen (Advil;Motrin) Take 3 tablets by 30 tablet 0 04/0 03/2021 200 mg Tablet mouth every 6 hours as needed for Pain. oxyCODONE (Roxicodone) 5 Take 1 tablet by 5 tablet 0 03/04 mg Tablet mouth every 4 hours as needed for Pain. polyethylene glycoL Take 17 g by mouth 14 each 0 03/04/20 21 (Miralax) 17 gram Powder daily as needed. in Packet documented as of this encounter Progress Notes Brandon Gaston RN - 03/04/2021 12:24 PM EDT Pt monitored in PACU 22 after OR. She reported feeling better than before surgery. Tylenol and oxycodone given for pain which helped bring it down from a 6/10 to 3/10 and described as tolerable. Rhogam given before discharge to home. Reviewed AVS with pt and partner Gabe. documented in this encounter H&P Notes Michaela Faustin DO - 03/04/2021 5:15 AM EDT Images from the original note were not included. Gynecology Admission H & P ID: Latricia Peralta is a 30 y.o. with LMP 01/29/2021 presenting to the [facility] ED in transport from the [facility] ED for further evaluation and management of left tubal ectopic . History of Present Illness: Latricia reports she and her partner have been trying to conceive for thelast 2 years and were excited to have a +UPT 2 days ago. Unfortunately, around the same time, she developed severe cramping abdominal pain, nausea, and poor PO tolerance. She presented to the [facility] ED last night for evaluation after experiencing near syncope at which point she was found to be hemodynamically stable with a Hgb of 11. Bedside US was performed and concerning for left tubal ectopic. She was transported to the [facility] ED for formal US capabilities. On arrival, patient remains hemodynamically stable but with drop in her Hgb to 9.8. Formal US performed demonstrating a left tubal ectopic with + FHT. On my evaluation, states she has ongoingabdominal pain and nausea. She denies lightheadedness or near syncope currently, denies vaginal bleeding. She last ate a few bites of salad at 9PM. Review of Systems: 7 point review of systems performed and negative except as detailed above. Past Medical and Surgical History: Past Medical History: Diagnosis Date ??? Anxiety and depression ??? Marijuana use daily ??? Substance use disorder On Subutex for many years, 8mg BID ??? Tobacco use smokes 3-6 cigs per day Past Surgical History: Procedure Laterality Date ??? LYMPH NODE BIOPSY neck, in childhood Past Obstetric History: OB History Para Term AB Living 3 1 1 0 2 1 SAB TAB Ectopic Multiple Live Births 0 1 1 0 1 Past Gynecologic History: Up to date on Paps, last 1 year ago. Reports all normal. History of trichomonas many years ago, treated. Prior To Admission Medications: No current outpatient medications Allergies: Allergies Allergen Reactions ??? Pcn [Penicillins] Family History: Family History Problem Relation Age of Onset ??? Breast Cancer Mother ??? Coronary Artery Disease Father Social History and Habits: Social History Tobacco Use ??? Smoking status: Current Every Day Smoker ??? Tobacco comment: 3-6 cigs per day Substance Use Topics ??? Alcohol use: Not Currently ??? Drug use: Yes Types: Marijuana Comment: daily Physical Exam: Last Set of Vitals: Last value Range last 24 hrs Temperature Temp: -- Heart Rate Heart Rate: 79 Heart Rate: [67-84] Blood Pressure BP: 114/64 BP: (112-116)/(60-82) Respiratory Rate Resp: 14 Resp: [9-27] SpO2 SpO2: 99 % SpO2: [97 %-100 %] Physical Exam Gen: Alert and conversant, pleasant but pale in appearance, no acute cardiopulmonary distress. Heart: Regular rate and rhythm, no murmurs, rubs, or gallops Lungs: Clear to auscultation bilaterally, no wheezes, rales, or rhonchi Abd: Normoactive bowel sounds, soft, non-distended, tender to palpation in lower quadrants, rebound present. Pelvic: Deferred Extremities: No lower extremity edema or calf tenderness to palpation Laboratory: Recent Labs 03/04/21199 WBC 10.9* HGB 9.8* HCT 28.7* PLATELET 182 Recent Labs 03/04/21199 NA 137 K 4.4 CL 103 CO2 25 BUN 12 CREATININE 0.52* Recent Labs 03/04/21199 AST 13 ALT 7 ALKPHOS 50 BILITOT <0.2* BILIDIR <0.1 Recent Labs 03/04/21199 PT 11.7 INR 1.0 PTT 21* TVUS (03/04/2021) - Preliminary Read: FINDINGS: Single living extrauterine is present in the left adnexa. No complex fluid in the cul-de-sac. ?? Uterine size: 7.4 x 4 x 4 cm. Anteverted. ?? Endometrial stripe: 2-3 mm. Sonographically normal. ?? Uterine masses: None. ?? Right ovary: No significant abnormality. Vascularity: Color flow analysis is within normal limits. Corpus luteum is present. ?? Left ovary: No significant abnormality. Vascularity: Color flow analysis is within normal limits. ?? Cul-de-sac: No free fluid. ? IMPRESSION 1. Single ectopic in the left adnexa. 2. No complex or free fluid in the cul-de-sac to suggest rupture. ?? A&P: Latricia Peralta is a 30 y.o. with newly diagnosed left tubal ectopic .with + FHT. She is hemodynamically stable but with signs of impending rupture (+rebound on exam, dropping Hgb). ?? Recommended surgical management with left salpingectomy, possible left salpingo-oophorectomy pending findings on laparoscopy. I reviewed that due to the size of the pregnacy and presence of severe pain, she is not a candidate for medical management with methotrexate at this time. Patient and partner in agreement to proceed. B Case booked, Anesthesia + OR aware. ?? Preoperative Planning ?? Surgical and acute opiate consents signed and placed in chart. ?? No antibiotic prophylaxis indicated. ?? SCDs ordered for VTE prophylaxis. ?? Anticipate same day discharge. ?? Will need Rhogam following surgery as she is Rh Neg. Plan of care discussed with Roberta Parker, Attending OBGYN. Michaela Faustin, PGY4 Obstetrics & Gynecology 03/04/2021 Associated attestation - Roberta Parker MD - 03/04/2021 7:41 AM EDT I have seen the patient and reviewed Dr. Faustin's above history and I agree with the details as written. The assessment and plan were formulated in discussion with me and I agree with them as documented. Latricia is a 30 y/o with left tubal ectopic . Will proceed with diagnostic laparoscopy with salpingostomy vs salpingectomy as needed. Roberta Parker MD documented in this encounter ED Notes Shayy Rojas LPN - 03/04/2021 5:25 AM EDT Patient in room [facility] DIRECTOR LEAD TEACHER at bedside. Lashaun Kaur MD - 03/04/2021 1:58 AM EDT ED Resident Note Latricia Peralta is an 30 y.o. female who presents to the ED with: Chief Complaint Patient presents with ??? Abdominal Pain I saw this patient on 03/04/2021. History is from the patient at the bedside. HPI Latricia Peralta is a 30 y.o. female with history of opioid use d/o on suboxone who presents to the Emergency Department via EMS as transport from [facility] with abdominal pain and concern for ectopic . The patient reports that 2 days ago she had a positive home test. Shortly thereafter ago she began feeling unwell with nausea and lower abdominal cramping that felt like menstrual cramps. This evening her abdominal pain acutely worsened and was accompanied by diaphoresis and an episode of near syncope. She presented to [facility] ED where she had a [id number] ultrasound that was not able to identify an IUP and was subsequently transferred to [facility] for formal ultrasound due to concern for ectopic . Upon arrival she was complaining of lower abdominal pain, lower back pain, mild lightheadedness, nausea, and had 2 episodes of nonbloody nonbilious vomiting before arrival. She deniesfever, chills, diarrhea, or vaginal bleeding. Labs at outside hospital were significant for beta quant of 10,000 and hemoglobin of 10.9. Last PO intake 3-4 hours ago. Past Medical History: Diagnosis Date ??? Anxiety and depression ??? Marijuana use daily ??? Substance use disorder On Subutex for many years, 8mg BID ??? Tobacco use smokes 3-6 cigs per day Review of Systems: Review of Systems Constitutional: Positive for diaphoresis. Negative for chills and fever. HENT: Negative. Eyes: Negative for visual disturbance. Respiratory: Negative. Cardiovascular: Negative. Gastrointestinal: Positive for abdominal pain. Negative for blood in stool, diarrhea, nausea and vomiting. Genitourinary: Positive for pelvic pain. Negative for flank pain and vaginal bleeding. Musculoskeletal: Negative. Negative for arthralgias, joint swelling and neck pain. Skin: Positive for pallor. Negative for rash and wound. Allergic/Immunologic: Negative for immunocompromised state. Neurological: Positive for light-headedness. Negative for seizures, syncope, facial asymmetry, weakness and headaches. Psychiatric/Behavioral: Negative. Physical Exam: Vitals ED to Hosp-Admission (Discharged) from 03/04/2021 in PACU at [facility] Weight 72.6 kg (160 lb) Height 167.6 cm (5' 6) BSA (Calculated - sq m) 1.84 sq meters BMI (Calculated) 25.82 Temp 36.1 ??C (97 ??F) Temp src Temporal Heart Rate 85 Heart Rate from SpO2 64 bpm Resp 18 BP 98/54 Patient Position Sitting SpO2 98 % GEN: non toxic, pale, anxious appearing HEENT: Oropharynx clear, pink, and moist. PULM: No resp distress. Clear lung sounds bilaterally CV: Normal rate. Regular rhythm, no murmurs gallops, warm/welll perfused ABD: Soft, nondistended, tender to palpation diffusely most in b/l lower quadrants, voluntary guarding MSK: No gross deformities or edema NEURO: AAOx3. PERRL. No gross CN deficits. Light touch intact face & body. Moves extremities equally. PSYCH: Normal mood and thought pattern. SKIN: No rashes or lesions. Pale ED Course: - Patient seen under the supervision of the attending physician. - Medications, allergies, and past medical history reviewed. Recent Results (from the past 72 hour(s)) Basic Metabolic Panel (non-fasting) Result Value Ref Range Glucose Lvl 100 65 - 199 mg/dL BUN 12 8 - 18 mg/dL Creatinine 0.52 (L) 0.70 - 1.20 mg/dL Sodium 137 135 - 145 mmol/L Potassium 4.4 3.5 - 5.0 mmol/L Chloride 103 98 - 107 mmol/L CO2 25 22 - 31 mmol/L Anion Gap 9 5 - 15 mmol/L Calcium 8.9 8.5 - 10.5 mg/dL Estimated GFR 127 >=60 mL/min/1.73 m?? Hepatic Function Panel Result Value Ref Range Total Protein 6.1 6.1 - 8.0 gm/dL Albumin 3.7 3.2 - 5.2 gm/dL AST 13 0 - 30 unit/L ALT 7 0 - 30 unit/L Alk Phos 50 35 - 105 unit/L Total Bilirubin <0.2 (L) 0.2 - 1.3 mg/dL Bili, Direct <0.1 0.0 - 0.3 mg/dL Beta HCG, quantitative Result Value Ref Range Beta hCG Quant 11,658 mlU/ML Prothrombin Time Result Value Ref Range PT 11.7 9.4 - 12.5 sec INR 1.0 APTT Result Value Ref Range PTT 21 (L) 25.0 - 37.0 sec Hemogram Result Value Ref Range WBC 10.9 (H) 4.0 - 9.5 x10(3)/mcL RBC 3.01 (L) 4.00 - 5.21 x10(6)/mcL Hemoglobin 9.8 (L) 11.7 - 15.5 gm/dL Hematocrit 28.7 (L) 35.7 - 45.8 % MCV 95.3 (H) 82.6 - 94.4 fL MCH 32.6 (H) 27.1 - 32.0 pg MCHC 34.1 31.7 - 35.0 gm/dL Platelets 182 145 - 357 x10(3)/mcL RDWSD 42.5 37.0 - 46.0 fL RDWCV 12.3 11.5 - 14.1 % MPV 10.3 7.6 - 12.9 fL nRBC % Auto 0.0 % nRBC Abs Auto 0.000 0.000 - 0.000 x10(3)/mcL Differential, Automated Result Value Ref Range Neutrophils % 72.2 % Neutr Abs (ANC) 7.89 (H) 1 - 6 x10(3)/mcL Lymphocytes % 19.7 % Lymphocytes Abs 2.2 0.9 - 3.2 x10(3)/mcL Monocytes % 6.7 % Monocyte Abs 0.7 0.3 - 0.9 x10(3)/mcL Eosinophils % 0.4 % Eosinophils Abs 0.0 0.0 - 0.4 x10(3)/mcL Basophils % 0.4 % Basophils Abs 0.0 0.0 - 0.1 x10(3)/mcL Immature Gran % 0.60 % Merly Gran Abs 0.07 (H) 0.00 - 0.04 x10(3)/mcL Gold Tube HOLD Result Value Ref Range Gold Hold Sample in lab. ABO/Rh Typing Result Value Ref Range ABORh Type A Neg Antibody screen Result Value Ref Range Ab Screen Interp Negative Expires at 2359 on: 03/07/2021 ABORH Recheck Status Result Value Ref Range ABORH Recheck Order Order Placed ABORH Type Recheck Complete Type and Screen Validity Result Value Ref Range T&S only valid at [facility] Hosp Prepare Rh Immune Globulin Result Value Ref Range Dispensed? Yes Results for orders placed or performed during the hospital encounter of 03/04/21 US Transvaginal Non OB (Exam End: 03/04/2021 4:58 AM) Narrative PELVIC ULTRASOUND INDICATION: acute onset abdominal pain with near syncope and tachycardia; History of: Ectopic . COMPARISON: None. TECHNIQUE: Transvaginal imaging was performed. Color flow imaging was performed. Spectral Doppler interrogation was not performed. 3-D imaging of the endometrial stripe was performed. FINDINGS: Single living extrauterine is present in the left adnexa. No complex fluid in the cul-de-sac. Uterine size: 7.4 x 4 x 4 cm. Anteverted. Endometrial stripe: 2-3 mm. Sonographically normal. Uterine masses: None. Right ovary: No significant abnormality. Vascularity: Color flow analysis is within normal limits. Corpus luteum is present. Left ovary: No significant abnormality. Vascularity: Color flow analysis is within normal limits. Cul-de-sac: No free fluid. Impression 1. Single ectopic in the left adnexa. 2. No complex or free fluid in the cul-de-sac to suggest rupture. I, Nando Erazo, discussed the result(s) with Dr. Ever Dickens on 03/04/2021 5:00 AM and verified that (s)he understood these results. Preliminary report signed by: Nando Erazo at 03/04/2021 5:16 AM I have personally reviewed the image(s) and the resident's interpretation and agree with the findings, George Ray MD at 03/04/2021 6:26 AM Thank you for letting us participate in the care of this patient. If you are a health care provider and have any questions regarding this report, please contact the number below. For patients who have questions please contact the health home care coordinator that requested your imaging first. Assessment and Plan: MDM 30 y.o. female with female with history of opioid use d/o on suboxone who presents to the Emergency Department via EMS as transport from [facility] with abdominal pain and concern for ectopic after positive home test and 2 days of lower abdominal pain without vaginal bleeding, worsening today with episode of near syncope and nausea/nonbloody nonbilious vomiting. On formal ultrasound she was found to have left adnexal ectopic with positive heart tones. She was hemodynamically stable with a drop in hemoglobin from 10.9 at the outside hospital to 9.8 upon arrival to [facility] ED. She received IV fluids, Zofran, Dilaudid while in the emergency room and labs were significant for white count 10.9, hemoglobin 9.8, platelets 182, normal coags, normal BMP, normal LFTs, beta hCG of 11,658. Active type and screen was sent and [facility] was consulted. They plan to admit for operative management of her ectopic . Admitted to Loss Prevention Agent Lashaun Kaur MD Resident 03/05/21 1501 Associated attestation - Ever Dickens MD - 03/13/2021 7:01 PM EDT ED ATTENDING ATTESTATION NOTE The patient was seen in conjunction with Dr. Kaur, the resident physician. I have independently performed the weaver portions of the history and physical exam. I have reviewed the nursing notes, vital signs, and all diagnostic studies personally including labs, imaging studies and EKGs. I have discussed the details of the case with the resident and agree with the assessment and plan as described in the resident note unless noted otherwise. Did this case involve critical care? Yes CRITICAL CARE DOCUMENTATION: Is there a high potential of sudden, clinically significant, or life threatening deterioration? Yes Are there life and/or organ supporting interventions that require frequent personal assessment and manipulation or support to treat/prevent vital organ failure/deterioration? yes I personally performed 30 minutes of aggregate critical care time exclusive of procedures and teaching during this emergency department visit. This includes time spent during direct patient evaluation and reassessment, interpreting diagnostic tests, directing life and/or organ supporting interventions, and documentation. Have you asked a patient their goals of care (ie. what matters)? Yes Goals of Care: Patient's concerns / fears at todays visit are concerns for disease, symptoms will get worse, and need for surgery / procedure. Patient's expectations/hopes at today's visit are treatment of symptoms, testing / diagnosis, and referral for speciality care . documented in this encounter Miscellaneous Notes Op Note - Natacha Ruano MD - 03/04/2021 10:15 AM EDT Operative Note Patient Name: Latricia Peralta : [id number] MR#: [id number] Case Date: 03/04/2021 Surgeon: Surgeon(s) and Role: * Roberta Parker MD - Primary * Natacha Ruano MD - Resident Preoperative diagnosis: Left sided ectopic Postoperative diagnosis: Left sided ectopic with hemoperitoneum Procedure(s) (LRB): LAPAROSCOPYY, ECTOPIC, W/ SALPINGECTOMY &/[facility] ([facility]) Anesthesia: General Findings: approximately 700 mL of clot and blood in the abdomen upon entering. Normal left ovary, distal left tube distended with clot and ectopic , some tissue extruding from end of tube withmild active bleeding from end of tube. Uterus boggy but normal in appearance, right ovary normal, right tube normal but fimbria blunted. Complications: none Intake: Intraprocedure Crystalloid Total 1000 mL Transfusion: None Output: Estimated Blood Loss: 50 mL Urine Output:: 250 mL Other Output: 700 mL hemoperitoneum Drains: Park, removed at end of case Specimens removed during surgery: left fallopian tube Disposition: awakened from anesthesia, extubated and taken to the recovery room in a stable condition, having suffered no apparent untoward event. Condition: doing well without problems Infection Bundle used? N/A HPI/Surgical Indications: Latricia Peralta is a 30 y.o. female desiring who presented to the emergency department with abdominal pain and positive test, with ultrasound showing an ectopic . Discussed with patient the need for an diagnostic laparoscopy, with salpingectomy vs salpingostomy. Consent was reviewed, including risks for bleeding, infection, and damage to surrounding structures. She understood these risks and was given the opportunity to ask questions. Procedure Description: The patient was taken to the operating room with IV fluids running where general anesthesia was obtained without difficulty. She was placed in the dorsal lithotomy position with legs in Yellowfin stirrups in a neurologically neutral position. SCD's were on and operating. No pre-operative antibiotics were indicated. Surgical pause was performed with all parties in agreement. Shewas prepped and draped in the usual sterile fashion. Park catheter was introduced into the bladder. A 5 mm incision was made in the inferior aspect of the the umbilicus with a scalpel after infiltration with local anesthesia. The 5 mm OptiView trochar and port site were inserted under direct vision with the laparoscope. The abdomen was insufflated with CO2 to a pressure of 15 mmHg. The abdomen was explored with findings as above. 5 mm right lower quadrant and left lower quadrant port sites were created in a similar fashion. The patient was placed in Trendelenburg position. Significant blood and hemoperitoneum was noted in the pelvis. This was evacuated using the suction-yield clerk device. The ectopic was actively bleeding and located among the fimbriae of the left tube. The decision wasmade to proceed with a salpingectomy. The LigaSure was used to ligate and divide across the left mesosalpinx, starting by dividing the fimbria from the left ovary, and continuing along to the right utero-ovarian ligament, which was ligated and divided, freeing the right fallopian tube. The tube was placed in the pelvis and attention was turned to the operative site. Hemostasis was observed. The specimens were removed intact via a laparoscopic specimen retrieval device from the left port site and were sent to pathology for permanent review. The pelvis was again visualized and hemostasis confirmed. The laparoscopic instruments were removed. Pneumoperitoneum was released. The ports were removed from the abdomen. The port incisions were closed with 4-0 Monocryl in a subcuticular fashion. DermaBond was applied to all port sites.The Park catheter was removed. The patient was awakened from anesthesia. She tolerated the procedure well with no apparent complications. She returned to the recovery room in stable condition. Dr. Roberta Parker was present for the entire procedure with no conflicting clinical responsibilities. Natacha Ruano MD, PGY-3 03/04/2021 Associated attestation - Roberta Parker MD - 03/05/2021 10:13 AM EDT Attestation: Case Date: 03/04/2021 I was present and I participated during the entire procedure (does not need to include opening and closing). Roberta Parker MD 03/05/2021 Brief Op Note - Roberta Parker MD - 03/04/2021 9:14 AM EDT Brief Operative Note Patient Name: Latricia Peralta : [id number] MR#: [id number] Case Date: 03/04/2021 Surgeon: Surgeon(s) and Role: * Roberta Parker MD - Primary * Dianelys Krause MD - Resident Preoperative diagnosis: Left sided ectopic Postoperative diagnosis: Left sided ectopic with hemoperitoneum Procedure(s) (LRB): LAPAROSCOPYY, ECTOPIC, W/ SALPINGECTOMY &/OR [facility] ([facility]) Anesthesia: General Findings: approximately 700 mL of clot and blood in the abdomen upon entering. Normal left ovary, distal left tube distended with clot and ectopic , some tissue extruding from end of tube withmild active bleeding from end of tube. Uterus boggy but normal in appearance, right ovary normal, right tube normal but fimbria blunted. Complications: none Intake: Intraprocedure Crystalloid Total 1000 mL Transfusion: None Output: Estimated Blood Loss: 50 mL Urine Output:: 250 mL Other Output: 700 mL hemoperitoneum Drains: Park, removed at end of case Specimens removed during surgery: left fallopian tube Disposition: awakened from anesthesia, extubated and taken to the recovery room in a stable condition, having suffered no apparent untoward event. Condition: doing well without problems Attestation: Case Date: 03/04/2021 I was present and I participated during the entire procedure (does not need to include opening and closing). (Please see the Surgical Encounter Summary for any Implant and Specimen details pertinent to this patient.) Infection Bundle used? N/A ED Triage - Shayy Rojas LPN - 03/04/2021 1:52 AM EDT HPI (Adult) Stated Reason for Visit: OSH sent for r/u of eptopic History Obtained From: EMS, patient Precipitating Event(s): none Onset of Symptoms: worsening Duration (Days): 2 Associated Signs/Symptoms: abdominal pain Medications/Treatments Prior to Arrival: none documented in this encounter Plan of Treatment Not on filedocumented as of this encounter Procedures Procedure Name Priority Date/Time Associated Comments Diagnosis PREPARE RH IMMUNE STAT 03/04/2021 10:50 Result s for this GLOBULIN AM EDT procedure are i n the results section. TRINA ECTOPIC, Routine 03/04/2021 9:10 AM W/ SALPINGECTOMY &/OR EDT OOPHORECTOMY SURGICAL PATHOLOGY Routine 03/04/2021 9:01 AM Res ults for this REPORT EDT procedure are i n the results section. SPECIMEN TO PATHOLOGY Routine 03/04/2021 9:01 AM Results for this EDT procedure are i n the results section. LAPAROSCOPYY, ECTOPIC, 03/04/2021 7:48 AM Left sided e ctopic W/ SALPINGECTOMY &/OR EDT OOPHORECTOMY ([facility] 12.11) US OB TRANSVAGINAL STAT 03/04/2021 4:58 AM Res ults for this EDT procedure are i n the results section. TYPE AND SCREEN STAT 03/04/2021 2:00 AM Result s for this VALIDITY EDT procedure are i n the results section. ABORH RECHECK STATUS STAT 03/04/2021 2:00 AM R esults for this EDT procedure are i n the results section. HEMOGRAM STAT 03/04/2021 2:00 AM Results f or this EDT procedure are i n the results section. DIFFERENTIAL, AUTOMATED STAT 03/04/2021 2:00 AM Results for this EDT procedure are i n the results section. GOLD TUBE HOLD STAT 03/04/2021 2:00 AM Results for this EDT procedure are i n the results section. ABO/RH TYPING STAT 03/04/2021 2:00 AM Results for this EDT procedure are i n the results section. HC PARTIAL STAT 03/04/2021 2:00 AM Results f or this THROMBOPLASTIN TIME EDT procedur e are in the results section. HC PROTHROMBIN TIME STAT 03/04/2021 2:00 AM Re sults for this EDT procedure are i n the results section. HC CBC,PLT & AUTO DIFF STAT 03/04/2021 2:00 AM EDT ANTIBODY SCREEN STAT 03/04/2021 2:00 AM Result s for this EDT procedure are i n the results section. HC ANTIBODY STAT 03/04/2021 2:00 AM DETECTION,CAPTURE-R EDT HC CHORIONIC STAT 03/04/2021 2:00 AM Results f or this GONADOTROPINS, SERUM EDT procedu re are in the results section. HEPATIC FUNCTION PANEL STAT 03/04/2021 2:00 AM Results for this EDT procedure are i n the results section. BASIC METABOLIC PANEL STAT 03/04/2021 2:00 AM Results for this (NON-FASTING) EDT procedure are in the results section. LAB SCAN 03/04/2021 12:00 Results for this AM EDT procedure are i n the results section. documented in this encounter Results Prepare Rh Immune Globulin (03/04/2021 10:50 AM EDT) athologist Signature Dispensed? Yes [facility] Specimen Anatomical Collection Method Collection Time Receive d Time (Source) Location / / Volume Laterality Blood specimen 03/04/2021 10:50 1 (specimen) AM EDT 10:48 AM EDT Roberta Parker MD BLOOD BANK ORDERABLES Performing Organization Address City/State/[place] [address] [facility] [address] Surgical Pathology Report (03/04/2021 9:01 AM EDT) Component Value Ref Test Analysis Performed At [facility] gist Range Method Time Signature Surgical [id number] ? Location: PACU; [facility]; [facility] Report The signing pathologist has (i) examined the relevant preparation(s) for the [facility] specimen(s) and (ii) rendered or confirmed the diagnosis(es) . HOSPITAL LABORATORY . ?Surgic al Pathology DIAGNOSIS Left fallopian tube (salpingectomy): ? Products of conception associated with ?benign fallopian tube and blood clot (ectopic ?). CR-0 Electronically signed by: ?Abelino Donaldson MD Verified: ??03/08/2021 14:04 ??Pathologist Performed at: ??-[facility] Dept. of Pathology, [place], [place] SPECIMEN(S) SUBMITTED A - Left fallopian tube & POC CLINICAL INFORMATION Left-sided ectopic SPECIMEN PROCESSING A - Labeled/Fixative: Left fallopian tube and POC, fresh. Quantity/Size/Weight: Fragments, 7.9 x 5.0 x 2.7 cm (overall ). Tissue Description: Disrupted salpingectomy. Left Fallopian Tube: 7.5 x 0 .8-2.2 cm, fimbriated, and disrupted. Protruding from the opening is adherent red-brown blood clot wi th soft, granular pink tissue resembling chorionic villi. No discrete parts are identified. Also received are additional detached fra gments of red-brown blood clot that are unremarkable upon sectioning. Guest House Manager sections in 10 cassettes as follows: ?A1-A4: Left fallopian tube fimbria with chorionic villi and adherent blood clot ?A5-A8: Proximal left fallopian tube ?A9-A10: Detached fragments of blood clot, representati ve ??erjg Specimen (Source) Anatomical Collection Method Collection Time Re ceived Time Location / / Volume Laterality 03/04/2021 9:01 AM EDT Roberta Parker MD PATHOLOGY/CYTOLOGY ORDERABLE S Performing Organization Address City/State/[place] [address] Specimen to Pathology (03/04/2021 9:01 AM EDT) Specimen Anatomical Collection Method Collection Time Receive d Time (Source) Location / / Volume Laterality AP Specimen 03/04/2021 9:01 AM 9:01 EDT AM EDT Narrative [facility] - 03/04/2021 9:01 AM EDT Specimen requisition ordered. ??Separate Pathology report to follow Roberta Parker MD PATHOLOGY/CYTOLOGY ORDERABLE S Performing Organization Address City/[facility]/[place] [address] US OB Viability Transvaginal (03/04/2021 4:58 AM EDT) Anatomical Region Laterality Modality Pelvis, Abdomen Ultrasound Specimen (Source) Anatomical Location Collection Method / Collectio n Time Received Time / Laterality Volume Impressions 03/04/2021 6:26 AM EDT 1. ??Single ectopic in the left adnexa. 2. ??No complex or free fluid in the cul -de-sac to suggest rupture. I, Nando Erazo, discussed the result (s) with Dr. Ever Dickens on 03/04/2021 5:00 AM and verified that (s)he understo od these results. Preliminary report signed by: Nando roberts at 03/04/2021 5:16 AM I have personally reviewed the image(s) and the resident's interpretation and agree with the findings, George Ray MD at 03/04/2021 6:26 AM Thank you for letting us participate in the care of this patient. ??If you are a health care provider and have any questi ons regarding this report, please contact the number below. ??For patients who have questions please contact the health home care coordinator that requested your imaging first. ? Narrative 03/04/2021 6:26 AM EDT PELVIC ULTRASOUND INDICATION: acute onset abdominal p ain with near syncope and tachycardia; History of: Ectopic . COMPARISON: None. TECHNIQUE: Transvaginal imaging was perf ormed. Color flow imaging was performed. Spectral Doppler interrogation was not p erformed. 3-D imaging of the endometrial stripe was performed. FINDINGS: Single living extrauterine is present in the left adnexa. No complex fluid in the cul-de-sac. Uterine size: 7.4 x 4 x 4 cm. Anteverted . Endometrial stripe: 2-3 mm. Sonographica lly normal. Uterine masses: None. Right ovary: No significant abnormality. Vascularity: Color flow analysis is within normal limits. Corpus luteum is p resent. Left ovary: No significant abnormality. Vascularity: Color flow analysis is within normal limits. Cul-de-sac: No free fluid. Ever Dickens MD [facility] ORDERABLES Type and Screen Validity (03/04/2021 2:00 AM EDT) [facility] Method Time Signature T&S only valid [facility] RENNY [facility] LABORATORY Comment: This Type and Screen result is only valid at the [facility] Hospital Specimen Anatomical Collection Method Collection Time Receive d Time (Source) Location / / Volume Laterality Blood specimen 03/04/2021 2:00 AM 021 2:13 (specimen) EDT AM EDT Resulting Agency Comment Spec In Lab Lashaun Kaur MD BLOOD BANK ORDERABLES Performing Organization Address City/[facility]/[place] [address] ABORH Recheck Status (03/04/2021 2:00 AM EDT) [facility] Method [place] Signature ABORH Recheck Order Placed [facility] LABORATORY ABORH Type Complete [facility] LABORATORY Specimen Anatomical Collection Method Collection Time Receive d Time (Source) Location / / Volume Laterality Blood specimen 03/04/2021 2:00 AM 021 2:13 (specimen) EDT AM EDT Resulting Agency Comment Spec In Lab Lashaun Kaur MD BLOOD BANK ORDERABLES Performing Organization Address City/[facility]/[place] [address] Antibody screen (03/04/2021 2:00 AM EDT) [facility] Method [place] Signature Ab Screen Negative [facility] LABORATORY Expires at 03/07/2021 [place] [id number] on: [facility]ORY Specimen Anatomical Collection Method Collection Time Receive d Time (Source) Location / / Volume Laterality Blood specimen 03/04/2021 2:00 AM 021 2:13 (specimen) EDT AM EDT Resulting Agency Comment Spec In Lab Lashaun Kaur MD BLOOD BANK ORDERABLES Performing Organization Address City/[facility]/ZIP Code Phon e Number [address] ABO/Rh Typing (03/04/2021 2:00 AM EDT) athologist Signature ABORh Type A Neg [facility] Specimen Anatomical Collection Method Collection Time Receive d Time (Source) Location / / Volume Laterality Blood specimen 03/04/2021 2:00 AM 021 2:13 (specimen) EDT AM EDT Resulting Agency Comment Spec In Lab Lashaun Kaur MD BLOOD BANK ORDERABLES Performing Organization Address City/State/ZIP Code Phon e Number [address] Gold Tube HOLD (03/04/2021 2:00 AM EDT) athologist [facility] Gold Hold Sample in [facility]. [facility]ORY Specimen Anatomical Collection Method Collection Time Receive d Time (Source) Location / / Volume Laterality Blood specimen Venous Draw / 03/04/2021 2:00 AM 2020 2:16 (specimen) Unknown EDT AM EDT Lashaun Kaur MD CHEMISTRY ORDERABLES Performing Organization Address City/State/ZIP Code Phon e Number [address] (ABNORMAL) Differential, Automated (03/04/2021 2:00 AM EDT) [facility] Method Time Signature Neutrophils % 72.2 % [facility] Neutr Abs (ANC) 7.89 (H) 1.70 - [facility] 6.10 [facility] x10(3)/[facility] L LABORATORY Lymphocytes % 19.7 % [facility] Lymphocytes Abs 2.2 0.9 - 3.2 [facility] x10(3)/[facility] LABORATORY Monocytes % 6.7 % [facility] Monocyte Abs 0.7 0.3 - 0.9 [facility] x10(3)/[facility] LABORATORY Eosinophils % 0.4 % [facility] Eosinophils Abs 0.0 0.0 - 0.4 [facility] x10(3)/[facility] LABORATORY Basophils % 0.4 % [facility] Basophils Abs 0.0 0.0 - 0.1 [facility] x10(3)/[facility] LABORATORY Immature Gran % 0.60 % [facility] Comment: Immature granulocytes(IG's)percentage an d absolute count will include metamyelocytes, myelocytes, and promyelo cytes. Blood smears from CBCs yielding IG's will be scanned manually for concor dance. If this scan disagrees with the automated IG or if promyelocytes are not ed, a manual differential will be performed. Merly Gran Abs 0.07 (H) 0.00 - 0.04 x10(3)/[facility] LABORATORY Specimen Anatomical Collection Method Collection Time Receive d Time (Source) Location / / Volume Laterality Blood specimen 03/04/2021 2:00 AM 021 2:15 (specimen) EDT AM EDT Resulting Agency Comment Spec In Lab Lashaun Kaur MD HEMATOLOGY ORDERABLES Performing Organization Address City/State/Z[place] [address] (ABNORMAL) Hemogram (03/04/2021 2:00 AM EDT) Analysis Performed At Patho logist Time Signature WBC 10.9 (H) 4.0 - 9.5 [facility] x10(3)/[facility] LABORATORY RBC 3.01 (L) 4.00 - [facility] RENNY 5.21 [facility] x10(6)/[facility] LABORATORY Hemoglobin 9.8 (L) 11.7 - [facility] 15.5 gm/dL [facility] LABORATORY Hematocrit 28.7 (L) 35.7 - [facility] RENNY 45.8 % [facility] LABORATORY MCV 95.3 (H) 82.6 - [facility].[address] [facility] LABORATORY MCH 32.6 (H) 27.1 - [place] 32.[address] [facility] LABORATORY MCHC 34.1 31.7 - [facility] 35.[facility] gm/dL [facility] LABORATORY Platelets 182 145 - 357 [facility] x10(3)/[facility] LABORATORY RDWSD 42.5 37.0 - [facility] 46.0 [facility] LABORATORY RDWCV 12.3 11.5 - [facility] % [facility] LABORATORY MPV 10.3 7.6 - 12.9 [facility] LABORATORY nRBC % Auto 0.0 % [facility] LABORATORY nRBC Abs Auto 0.000 0.000 - [facility] RENNY 0.000 [facility] x10(3)/[facility] LABORATORY Specimen Anatomical Collection Method Collection Time Receive d Time (Source) Location / / Volume Laterality Blood specimen 03/04/2021 2:00 AM 021 2:15 (specimen) EDT AM EDT Resulting Agency Comment Spec In Lab Lashaun Kaur MD HEMATOLOGY ORDERABLES Performing Organization Address City/[facility]/[place] [address] (ABNORMAL) APTT (03/04/2021 2:00 AM EDT) P athologist Signature PTT 21 (L) 25 - 37 sec [facility] Comment: Decreased clotting times may be caused by improper phlebotomy technique. The PTT is NOT appropriate for heparin m onitoring. Use the Anti-Xa level for heparin monitoring (HEP UFH) or LMWH mon itoring (HEP LMW). A PTT less than 37 seconds generally indicates adequate hem ostasis. Specimen Anatomical Collection Method Collection Time Receive d Time (Source) Location / / Volume Laterality Blood specimen 03/04/2021 2:00 AM 021 2:15 (specimen) EDT AM EDT Resulting Agency Comment Spec In Lab Ever Dickens MD HEMATOLOGY ORDERABLES Performing Organization Address City/[facility]/ZIP Code Phon e Number [address] Prothrombin Time (03/04/2021 2:00 AM EDT) P athologist Signature PT 11.7 9.4 - 12.5 [facility] LABORATORY INR 1.0 [facility] Comment: An INR <2.0 indicates adequate procoagul ant activity for hemostasis in most patients without underlying bleeding dis orders, though the INR may not adequately reflect hemostatic capacity i n patients with liver disease and synthetic impairment. The recommended ta rget INR range for therapeutic anticoagulation is 2.0 ? 3.0 for most applications, though lower and higher ranges may be appropriate depending on c linical circumstances. Specimen Anatomical Collection Method Collection Time Receive d Time (Source) Location / / Volume Laterality Blood specimen 03/04/2021 2:00 AM 021 2:15 (specimen) EDT AM EDT Resulting Agency Comment Spec In Lab Ever Dickens MD HEMATOLOGY ORDERABLES Performing Organization Address City/State/ZIP Code Phon e Number [place] [phone] HOSPITAL LAB[address]ORY Drive Beta HCG, quantitative (03/04/2021 2:00 AM EDT) athologist Signature Beta hCG Quant 11,658 mlU/ML [facility] Comment: result rechecked-KS REFERENCE RANGES NON- FEMALE: ??Less than 5 mIU/m L POSTMENOPAUSAL FEMALE: ??Less than 8 mIU /mL ? -- FEMALES -- Weeks of ? HCG range ??(mIU/mL) ? 3 weeks ? 5.8 - 71.2 ? 4 weeks ? 9.5 - 750 ? 5 weeks ? 217 - 7,138 ? 6 weeks ? 158 - 31,795 ? 7 weeks ? 3,697 - 163,563 ? 8 weeks ? 32,065 - 149,571 ? 9 weeks ? 63,803 - 151,410 ?10 weeks ? 46,509 - 186,977 ?12 weeks ? 27,832 - 210,612 ?14 weeks ? 13,950 - 62,530 ?15 weeks ? 12,039 - 70,971 ?16 weeks ? 9,040 - 56,451 ?17 weeks ? 8,175 - 55,868 ?18 weeks ? 8,099 - 90,176 Specimen Anatomical Collection Method Collection Time Receive d Time (Source) Location / / Volume Laterality Blood specimen 03/04/2021 2:00 AM 021 2:15 (specimen) EDT AM EDT Resulting Agency Comment Spec In Lab Ever Dickens MD CHEMISTRY ORDERABLES Performing Organization Address City/State/[place] [address] (ABNORMAL) Hepatic Function Panel (03/04/2021 2:00 AM EDT) Analysis Performed At Patho logist Time Signature Total Protein 6.1 6.1 - 8.0 [facility] RENNY gm/dL [facility] LABORATORY Albumin 3.7 3.2 - 5.2 [facility] gm/dL [facility] AST 13 0 - 30 [facility] unit/L [facility] ALT 7 0 - 30 [facility] unit/L [facility] Alk Phos 50 35 - 105 [facility] unit/L [facility]ORY Total <0.2 (L) 0.2 - 1.3 [facility] Bilirubin mg/dL [facility]ORY Comment: result rechecked-KS Bili, Direct <0.1 0.0 - 0.3 mg/dL [facility] LAB[facility] Specimen Anatomical Collection Method Collection Time Receive d Time (Source) Location / / Volume Laterality Blood specimen 03/04/2021 2:00 AM 021 2:15 (specimen) EDT AM EDT Resulting Agency Comment Spec In Lab Ever Dickens MD CHEMISTRY ORDERABLES Performing Organization Address City/State/ZIP Code Phon e Number [address] (ABNORMAL) Basic Metabolic Panel (non-fasting) (03/04/2021 2:00 AM EDT) P athologist Signature Glucose Lvl 100 65 - 199 [facility]dL [facility] Comment: Diabetes: >=200 mg/dL plus symp toms BUN 12 8 - 18 mg/dL [facility] Creatinine 0.52 (L) 0.70 - 1.20 mg/dL [facility] Sodium 137 135 - 145 mmol/L [facility] Potassium 4.4 3.5 - 5.0 mmol/L [facility] Comment: Please note: ??Patients with WBC >100,00 0 may have falsely elevated Potassium levels. ??For accurate Potassium quantif ication in these patients send serum separator tube (gold top) for subsequent determinations. ??Contact the Clinical Chemistry Laboratory if there are any qu estions. Chloride 103 98 - 107 mmol/L [facility] CO2 25 22 - 31 mmol/L [facility] Anion Gap 9 5 - 15 mmol/L [facility] LABOR[facility]ORY Calcium 8.9 8.5 - 10.5 mg/dL [facility] Estimated GFR 127 >=60 mL/min/1.73 m?? [facility] Comment: This patient? s estimated glomerular filtration rate (eGFR) is between 127 mL/min/1.73 m2 (patients with less muscl e mass) and 148 mL/min/1.73 m2 (patients with more muscle mass) as dete rmined by the CKD-EPI equation. Assessment of eGFR is not appropriate wh en creatinine concentrations are rapidly changing. For clinical decisions where creatinine clearance will affect therapy, a 24-hour urine creatinine dhiraj ling may be advised. Assignment of CKD stage 1 - 5 for patien ts with an eGFR near the transition point between stages may be based on cli nical assessment of muscle mass and symptoms in addition to eGFR. Specimen Anatomical Collection Method Collection Time Receive d Time (Source) Location / / Volume Laterality Blood specimen 03/04/2021 2:00 AM 021 2:15 (specimen) EDT AM EDT Resulting Agency Comment Spec In Lab Ever Dickens MD CHEMISTRY ORDERABLES Performing Organization Address City/State/ZIP Code Phon e Number [place] [id number] HOSPITAL LAB[address]ORY Drive SCAN DOC: LAB (03/04/2021 12:00 AM EDT) Narrative 03/04/2021 12:00 AM EDT This result has an attachment that is no t available. Ordered by an unspecified provider. Scanning Provider MEDIA MGR SCAN EXT ORDR/RSLT documented in this encounter Visit Diagnoses Diagnosis Abdominal without intrauterine Ectopic Unspecified ectopic without in trauterine Anxiety and depression Dysthymic disorder Substance use disorder Marijuana use Cannabis abuse, unspecified Tobacco use Tobacco use disorder documented in this encounter Administered Medications Inactive Administered Medications - up to 3 most recent administrations Medication Order MAR Action Action Date Dose Rate Site acetaminophen (Ofirmev) (1000 Given 03/04/2021 9:52 AM 1,000 mg 400 mL/hr mg/100 mL) infusion 1,000 mg EDT 1,000 mg, Intravenous, at 400 mL/hr, ONCE, 1 dose, On 03/04/21 at 1000, Maximum dose of acetaminophen is 4000 mg from all sources in 24 hours. When ordered for pain, acetaminophen should be given even when other ordered pain medications are indicated. , Routine buprenorphine-naloxone (Suboxone) 8-2 mg Given 03/04/2021 6:23 A M EDT 1 tablet disintegrating tablet 1 tablet 1 tablet (8 mg of opiate), Sublingual, DAILY, First dose on 03/04/21 at 0513, Until Discontinued, Routine fentaNYL (pf) (50 mcg/mL) multi-dose inj ection 25-50 mcg 25-50 mcg, Intravenous, EVERY 5 MIN PRN, Starting on 03/04/21 at 0903, Until 03/04/21 at 1432, Pain, Give 25 mcg every 5 minutes PRN for mild to moderate pain (1-5) Give 50 mcg every 5 minutes PRN fo r moderate to severe pain (6-10). Hold for respiratory rate less than 10 per minute . Maximum dose 400 mcg over one hour. If ordered with hydromorphone or morphine, give hydromorphone or morphine first and use fentanyl for breakthrough pain., Routine HYDROmorphone (Dilaudid) (1 mg/mL) injection Given 03/2021 5:14 AM EDT 0.5 mg syringe 0.5 mg 0.5 mg, Intravenous, ONCE, 1 dose, On Fri03/04/21 at 0510, STAT lactated Ringers 1,000 mL IV bolus New Bag 03/04/2021 5:10 AM EDT 2000 mL/hr at 2,000 mL/hr, Intravenous, ONCE, 1 dose, On 03/04/21 at 0510 ondansetron (pf) (Zofran) (2 mg/mL) injection 4 Given 03/04/2021 5:15 AM EDT 4 mg mg 4 mg, Intravenous, ONCE, 1 dose, On 03/04/21 at 0510, STAT oxyCODONE (Roxicodone) tablet 5-10 mg Given 03/04/2021 11:41 AM EDT 10 mg 5-10 mg, Oral, EVERY 3 HOURS PRN, Starting on 03/04/21 at 0950, Until 03/04/21 at 1432, Pain, - If multiple pain medications ordered, use acetaminophen first. - If pain not relieved by acetaminophen first, administer oxycodone. - Initial dose 5 mg. - If pain control not adequate in 60 minutes, give additional 5 mg., Routine documented in this encounter Active and Recently Administered Medications Times are shown in EDT. Scheduled Medication Order 03/02/2021 03/03/2021 03/04/2021 acetaminophen (Ofirmev) (1000 mg/100 mL) infusion 1,000 mg (COMP LETED) 0952 (Given - Provider: Brandon Gaston RN) 1,000 mg, Intravenous, at 400 mL/hr, ONC E, 1 dose, 03/04/21 at 1000, Maximum dose of acetaminophen is 4000 mg from all sources in 24 hours. When ordered for pain, acetaminophen should be given even wh en other ordered pain medications are indicated. , Routine buprenorphine-naloxone (Suboxone) 8-2 mg disintegrating tablet 1 tablet 0623 (Given - Provider: Shayy Rojas LPN)0735 (JAN Hold - Provider: Admin Adt - Reason: Transfer to a Procedural area)1432 (JAN Unhold - Provider: Automatic Discharge Provider) 1 tablet (8 mg of opiate), Sublingual, D AILY, First dose on 03/04/21 at 0513, Until Discontinued, Routine HYDROmorphone (Dilaudid) (1 mg/mL) injection syringe 0.5 mg (COM PLETED) 0514 (Given - Provider: Shayy Rojas LPN) 0.5 mg, Intravenous, ONCE, 1 dose, 03/04/21 at 0510, STAT ketorolac (Toradol) (15 mg/mL) injection 15 mg 1015 (Due) 15 mg, Intravenous, EVERY 8 HOURS SCHEDU LED, 3 doses, First dose on 03/04/21 at 1015, Last dose on Fri03/05/21 at 0600, Routine lactated Ringers 1,000 mL IV bolus (COMPLETED) 0510 (New Bag - Provider: Shayy Rojas LPN)0540 (Stopped - Provider: Shayy Rojas LPN) at 2,000 mL/hr, Intravenous, ONCE, 1 dose, 03/04/21 at 0510 ondansetron (pf) (Zofran) (2 mg/mL) injection 4 mg (COMPLETED) 0515 (Given - Provider: Shayy Rojas LPN) 4 mg, Intravenous, ONCE, 1 dose, 03/04/21 at 0510, STAT Continuous Medication Order 03/02/2021 03/03/2021 03/04/2021 lactated ringers infusion 1015 ( Due) 1,000 mL, at 100 mL/hr, Intravenous, CON TINUOUS, Starting 03/04/21 at 1015, Until 03/04/21 at 1432 PRN Medication Order 03/02/2021 03/03/2021 03/04/2021 acetaminophen (Tylenol) tablet 650 mg 650 mg, Oral, EVERY 6 HOURS PRN, Startin g 03/04/21 at 0950, Until 03/04/21 at 1432, Pain, If multiple pain medications ordered, use acetaminophen first. Maximum dose of acetaminophen is 4000 mg from all sources in 24 hours. When ordered f or pain, acetaminophen should be given even when other ordered pain medications are indicated., Routine BUpivacaine (pf) (Marcaine) (2.5 mg/mL) 0.25% injection (CANCELE D) 0904 (Given - Provider: Roberta Parker MD) ONCE PRN, Starting 03/04/21 at 0904, U ntil 03/04/21 at 1432, Intra-Operative (Intra-Procedure), Routine fentaNYL (pf) (50 mcg/mL) multi-dose injection 25-50 mcg 25-50 mcg, Intravenous, EVERY 5 MIN PRN, Starting 03/04/21 at 0903, Until 03/04/21 at 1432, Pain, Give 25 mcg every 5 minutes PRN for mild to moderate pain (1-5) Give 50 mcg every 5 minutes PRN for moderate to severe pain (6-10). Hold for respiratory rate less than 10 per minute. Maximum dose 400 mcg over one hour. If ordered with hydromorphone or morphine, give hydromorphone or morphine first and use fentanyl for breakthrough pain., Routine oxyCODONE (Roxicodone) tablet 5-10 mg 1141 (Given - Provider: Brandon Gaston, RN) 5-10 mg, Oral, EVERY 3 HOURS PRN, Starti ng Sun 03/04/21 at 0950, Until 03/04/21 at 1432, Pain, - If multiple pain medications ordered, use acetaminophen first. - If pain not relieved by acetaminophen fi rst, administer oxycodone. - Initial dos e 5 mg. - If pain control not adequate in 60 minutes, give additional 5 mg., Routine documented in this encounter Care Teams Wood Sash And Frame Carpenter Relationship Specialty Start Date End Date Bob Machado DO PCP - General Family Medicine 12/14/[address] [place] [address] documented as of this encounter
--- OUTSIDE RECORDS SUMMARY | 2022-06-20 01:17 | XMS_ITS | Encounter Summary ---
:1990 Author Organization [facility] Address [address] [place] [address] Care Team Providers Name Role Phone Unknown, Provider Primary Care Provider Encounter Details Date Type Department Care Team Description 02/03/2013 Results Only [facility] [place], LARRY [phone] [address] [address] (Wo rk) Social History Tobacco Use Types Packs/Day Years Used Date Never Assessed Sex Assigned at Date Recorded Not on file documented as of this encounter Plan of Treatment Not on filedocumented as of this encounter Procedures Procedure Name Priority Date/Time Associated Diagnosis Comme nts PAP TEST- RESULT Routine 02/03/2013 0:00 EST Resu lts for this ONLY procedure are i n the results section. documented in this encounter Results PAP TEST- RESULT ONLY (02/03/2013 0:00 EST) Pathology Report: CYTOPATHOLOGY REPORT [facility] Reports generated via electronic interface contain jostin ginal data; however they are lacking the format of the original re port. Caution should be taken when reading/interpreting unfo rmatted reports. Name: ? LATRICIA KENDALL ? Accession #: ? [id number] : ? 1990 (Age: 22) ??F ?Collect Date: ? 05/2013 Location: ? [facility] ? Receive Date : ? 02/04/2013 Provider: ?LO CALI Copy to: ? Specimen/Source: ? Pap Test, Cervix, ThinPrep Imaging System with manual evaluation Last Menstrual Period: ? 02/01/13 ? SPECIMEN ADEQUACY ? Satisfactory for Evaluation - transformation zone component present GENERAL CATEGORIZATION ? Negative for Intraepithelial Lesion or Malignan cy INTERPRETATION ? Shift in felton present suggestive of bacterial vaginosis. ? Document reviewed and electronically signed by: ? ANNIE Bradley(ASCP) ? Report Date: ??02/08/2013 09:52 End of Report Specimen Performing Organization Address City/State/ZIP Code Phon e Number [facility] [address] [place] [address] [facility] [address] [place] [address] documented in this encounter Visit Diagnoses Not on filedocumented in this encounter Care Teams Hypo Splasher Relationship Specialty Start Date End Date Unknown, Provider, PCP - General 02/04/13 04/12/19 documented as of this encounter
--- OUTSIDE RECORDS SUMMARY | 2022-06-20 01:17 | XMS_ITS | Encounter Summary ---
:1990 Author Organization [facility] Address [address] [place] [address] Care Team Providers Name Role Phone Unknown, Provider Primary Care Provider Encounter Details Date Type Department Care Team Description 03/22/2019 Hospital Encounter [facility]- [place] Unknown, Provider, [facility] [address] [place] [address] [place] [address] (Work) [phone] Social History Tobacco Use Types Packs/Day Years Used Date Never Assessed Sex Assigned at Date Recorded Not on file documented as of this encounter Discharge Disposition Disposition Code Departure Means Destination Home or Self [facility] documented in this encounter Plan of Treatment Not on filedocumented as of this encounter Visit Diagnoses Not on filedocumented in this encounter Care Teams Design Printer Balloon Relationship Specialty Start Date End Date Unknown, Provider, PCP - General 02/04/13 04/12/19 documented as of this encounter
--- OUTSIDE RECORDS SUMMARY | 2022-06-20 01:17 | XMS_ITS | Encounter Summary ---
:1990 Author Organization [facility] [address] Care Team Providers Name Role Phone Bob Machado Primary Care Provider Reason for Visit Reason Comments Abdominal Pain Encounter Details Date Type Department Care Team Description 03/04/2021 Surgery Main Operating Room Roberta Parker L APAROSCOPYY, ECTOPIC, W/ Anne Leiva MD SALPINGECTOMY &/OR [facility] OOPHORECTOMY (WRVU 12.11) [facility] [place] [address] [place] [address] [phone] Social History Tobacco Use Types Packs/Day Years Used Date Current Every Day Smoker Comments: 3-6 cigs per day Alcohol Use Standard Drinks/Week Comments Not Currently 0 (1 standard drink = 0.6 oz pure alcoho l) Sex Assigned at Date Recorded Not on file documented as of this encounter Last Filed Vital Signs Vital Sign Reading Time Taken Comments Blood Pressure 114/64 03/04/2021 6:00 AM EDT Pulse 79 03/04/2021 6:00 AM EDT Temperature - - Respiratory Rate 14 03/04/2021 6:00 AM EDT Oxygen Saturation 99% 03/04/2021 6:00 AM EDT Inhaled Oxygen Concentration - - [...] time of discharge, please call your primary WELDER APPRENTICE GAS provider for a follow up appointment. ([phone]) Follow-up appointment with Dr Faustin requested for 2w from your surgery. Patient Discharge Instructions: For problems or concerns related to this hospitalization call: [phone] weekdays, or [phone] weekends or nights. Call your doctor if [...] y.o. with LMP 01/29/2021 presenting to the [facility] ED in transport from the [facility] ED for further evaluation and management of left tubal ectopic . History of Present Illness: Latricia reports she and her partner have been trying to conceive for thelast 2 years and were excited to have a +UPT 2 days ago. Unfortunately, around the same time, she developed severe cramping abdominal pain, nausea, and poor PO tolerance. She presented to the [facility] ED last night for evaluation after experiencing near syncope at which point she was found to be hemodynamically stable with a Hgb of 11. Bedside US was performed and concerning for left tubal ectopic. She was transported to the [facility] ED for formal US capabilities. On arrival, [...] 03/04/2021 5:25 AM EDT Patient in room [employer]PRENTICE G[employer] at bedside. Lashaun Kaur MD - 03/04/2021 [...] Emergency Department via EMS as transport from [facility] with abdominal pain and concern for ectopic . The patient reports that 2 days ago she had a positive home test. Shortly thereafter ago she began feeling unwell with nausea and lower abdominal cramping that felt like menstrual cramps. This evening her abdominal pain acutely worsened and was accompanied by diaphoresis and an episode of near syncope. She presented to [facility] ED where she had a [id number] ultrasound that was not able to identify an IUP and was subsequently transferred to [facility] for formal ultrasound due to concern for [...] Hosp-Admission (Discharged) from 03/04/2021 in PACU at [facility] Weight 72.6 kg (160 lb) Height 167.6 [...] Value Ref Range T&S only valid at [facility] Hosp Prepare Rh Immune Globulin Result Value [...] who have questions please contact the health sub acute care nurse that requested your imaging first. Electronically signed by: George Ray MD, [facility] ([phone]), at 03/04/2021 6:26 AM Assessment and Plan: MDM 30 y.o. female with female with history of opioid use d/o on suboxone who presents to the Emergency Department via EMS as transport from [facility] with abdominal pain and concern [...] outside hospital to 9.8 upon arrival to [facility] ED. She received IV fluids, Zofran, Dilaudid while in the emergency room and labs were significant for white count 10.9, hemoglobin 9.8, platelets 182, normal coags, normal BMP, normal LFTs, beta hCG of 11,658. Active type and screen was sent and SKATING [facility]HOP was consulted. They plan to admit for operative management of her ectopic . Admitted to Business Services Analyst Lashaun Kaur MD Resident 03/05/21 1501 Associated [...] Operative Note Patient Name: Latricia Peralta : [id number] MR#: [id number] Case Date: 03/04/2021 Surgeon: Surgeon(s) and Role: * Roberta Parker MD - Primary * Natacha Ruano MD - Resident Preoperative diagnosis: Left sided ectopic Postoperative diagnosis: Left sided ectopic with hemoperitoneum Procedure(s) (LRB): LAPAROSCOPYY, ECTOPIC, W/ SALPINGECTOMY &/OR [facility]ECTOM[facility] (Left) Anesthesia: General Findings: approximately 700 [...] the pelvis. This was evacuated using the suction-switchboard operator receptionist device. The ectopic was actively bleeding and [...] Operative Note Patient Name: Latricia Peralta : [id number] MR#: [id number] Case Date: 03/04/2021 Surgeon: Surgeon(s) and Role: * Roberta Parker MD - Primary * Dianelys Krause MD - Resident Preoperative diagnosis: Left sided ectopic Postoperative diagnosis: Left sided ectopic with hemoperitoneum Procedure(s) (LRB): LAPAROSCOPYY, ECTOPIC, W/ SALPINGECTOMY &/OR OOPHORECTOMY ([facility] 12.11) (Left) Anesthesia: General Findings: approximately 700 [...] 10:50 AM EDT) athologist Signature Dispensed? Yes [facility] Specimen Anatomical Collection Method Collection Time Receive d Time (Source) Location / / Volume Laterality Blood specimen 03/04/2021 10:50 1 (specimen) AM EDT 10:48 AM EDT Roberta Parker MD BLOOD BANK ORDERABLES Performing Organization Address City/State/[place] [address] [facility] [address] Surgical Pathology Report (03/04/2021 9:01 AM EDT) Component Value Ref Test Analysis Performed At [facility] gist Range Method Time Signature Surgical [id number] ? Location: PACU; [facility]; A [facility] Report The signing pathologist has (i) examined [...] MD Verified: ??03/08/2021 14:04 ??Pathologist Performed at: ??-[facility] Dept. of Pathology, [place], [place] SPECIMEN(S) SUBMITTED A - Left fallopian [...] blood clot that are unremarkable upon sectioning. Creative Designer sections in 10 cassettes as follows: ?A1-A4: [...] Organization Address City/State/[place] [address] Specimen to Pathology (03/04/2021 9:01 AM EDT) Specimen Anatomical Collection Method Collection Time Receive d Time (Source) Location / / Volume Laterality AP Specimen 03/04/2021 9:01 AM 9:01 EDT AM EDT Narrative [facility] - 03/04/2021 9:01 AM EDT Specimen requisition ordered. ??Separate Pathology report to follow Roberta Parker MD PATHOLOGY/CYTOLOGY ORDERABLE S Performing Organization Address City/[facility]/[place] [address] US OB Viability Transvaginal [...] who have questions please contact the health sub acute care nurse that requested your imaging first. ? Electronically signed by: George werner MD, [facility] ([phone]), at 03/04/2021 6:26 AM Narrative 03/04/2021 6:26 AM EDT PELVIC ULTRASOUND [...] Cul-de-sac: No free fluid. Ever Dickens MD [facility] OB ORDERABLES Type and Screen Validity (03/04/2021 2:00 AM EDT) [facility] Method Time Signature T&S only valid [facility] RENNY [facility] LABORATORY Comment: This Type and Screen result is only valid at the [facility] Hospital Specimen Anatomical Collection Method Collection Time Receive d Time (Source) Location / / Volume Laterality Blood specimen 03/04/2021 2:00 AM 021 2:13 (specimen) EDT AM EDT Resulting Agency Comment Spec In Lab Lashaun Kaur MD BLOOD BANK ORDERABLES Performing Organization Address City/[facility]/[place] [address] ABORH Recheck Status (03/04/2021 2:00 AM EDT) [facility] Method [place] Signature ABORH Recheck Order Placed [facility] LABORATORY ABORH Type Complete [facility] LABORATORY Specimen Anatomical Collection Method Collection Time Receive d Time (Source) Location / / Volume Laterality Blood specimen 03/04/2021 2:00 AM 021 2:13 (specimen) EDT AM EDT Resulting Agency Comment Spec In Lab Lashaun Kaur MD BLOOD BANK ORDERABLES Performing Organization Address City/[facility]/[place] [address] Antibody screen (03/04/2021 2:00 AM EDT) [facility] Method [place] Signature Ab Screen Negative [facility] LABORATORY Expires at 03/07/2021 ANNE LEIVA [id number] on: [facility] LABORATORY Specimen Anatomical Collection Method Collection Time Receive d Time (Source) Location / / Volume Laterality Blood specimen 03/04/2021 2:00 AM 021 2:13 (specimen) EDT AM EDT Resulting Agency Comment Spec In Lab Lashaun Kaur MD BLOOD BANK ORDERABLES Performing Organization Address City/[facility]/ZIP Code Phon e Number [address] ABO/Rh Typing (03/04/2021 2:00 AM EDT) athologist Signature ABORh Type A Neg [facility] Specimen Anatomical Collection Method Collection Time Receive d Time (Source) Location / / Volume Laterality Blood specimen 03/04/2021 2:00 AM 021 2:13 (specimen) EDT AM EDT Resulting Agency Comment Spec In Lab Lashaun Kaur MD BLOOD BANK ORDERABLES Performing Organization Address City/State/ZIP Code Phon e Number [address] Gold Tube HOLD (03/04/2021 2:00 AM EDT) athologist [facility] Gold Hold Sample in [facility]. [facility] LABORATORY Specimen Anatomical Collection Method Collection Time Receive d Time (Source) Location / / Volume Laterality Blood specimen Venous Draw / 03/04/2021 2:00 AM 2020 2:16 (specimen) Unknown EDT AM EDT Lashaun Kaur MD CHEMISTRY ORDERABLES Performing Organization Address City/State/ZIP Code Phon e Number [address] (ABNORMAL) Differential, Automated (03/04/2021 2:00 AM EDT) [facility] Method Time Signature Neutrophils % 72.2 % [facility] Neutr Abs (ANC) 7.89 (H) 1.70 - [facility] 6.10 [facility] x10(3)/[facility] L LABORATORY Lymphocytes % 19.7 % [facility] Lymphocytes Abs 2.2 0.9 - 3.2 [facility] x10(3)/[facility] LABORATORY Monocytes % 6.7 % [facility] Monocyte Abs 0.7 0.3 - 0.9 [facility] x10(3)/[facility] LABORATORY Eosinophils % 0.4 % [facility] Eosinophils Abs 0.0 0.0 - 0.4 [facility] x10(3)/[facility] LABORATORY Basophils % 0.4 % [facility] Basophils Abs 0.0 0.0 - 0.1 [facility] x10(3)/[facility] LABORATORY Immature Gran % 0.60 % [facility] Comment: Immature granulocytes(IG's)percentage an d absolute count will include metamyelocytes, myelocytes, and promyelo cytes. Blood smears from CBCs yielding IG's will be scanned manually for concor dance. If this scan disagrees with the automated IG or if promyelocytes are not ed, a manual differential will be performed. Merly Gran Abs 0.07 (H) 0.00 - 0.04 x10(3)/[facility] LABORATORY Specimen Anatomical Collection Method Collection Time Receive d Time (Source) Location / / Volume Laterality Blood specimen 03/04/2021 2:00 AM 021 2:15 (specimen) EDT AM EDT Resulting Agency Comment Spec In Lab Lashaun Kaur MD HEMATOLOGY ORDERABLES Performing Organization Address City/State/[place] [address] (ABNORMAL) Hemogram (03/04/2021 2:00 AM EDT) Analysis Performed At Patho logist Time Signature WBC 10.9 (H) 4.0 - 9.5 [facility] x10(3)/[facility] LABORATORY RBC 3.01 (L) 4.00 - [facility] RENNY 5.21 [facility] x10(6)/[facility] LABORATORY Hemoglobin 9.8 (L) 11.[address] [facility] 15.5 gm/dL [facility] LABORATORY Hematocrit 28.7 (L) 35.7 - [facility] RENNY 45.8 % [facility] LABORATORY MCV 95.3 (H) 82.[address] [facility] 94.4 fL [facility] LABORATORY MCH 32.6 (H) 27.1 - ANNE RENNY 32.0 pg [facility] LABORATORY MCHC 34.1 31.7 - [facility] g[facility]dL [facility] LABORATORY Platelets 182 145 - 357 [facility] x10(3)/[facility] LABORATORY RDWSD 42.5 37.0 - ANNE LEIVA 46.0 [facility] LABORATORY RDWCV 12.3 11.5 - [facility] 14.1 % [facility] LABORATORY MPV 10.3 7.6 - 12.9 [facility] LABORATORY nRBC % Auto 0.0 % [facility] nRBC Abs Auto 0.000 0.000 - [facility] RENNY 0.000 [facility] x10(3)/[facility] LABORATORY Specimen Anatomical Collection Method Collection Time Receive d Time (Source) Location / / Volume Laterality Blood specimen 03/04/2021 2:00 AM 021 2:15 (specimen) EDT AM EDT Resulting Agency Comment Spec In Lab Lashaun Kaur MD HEMATOLOGY ORDERABLES Performing Organization Address City/[facility]/[place] [address] (ABNORMAL) APTT (03/04/2021 2:00 AM EDT) P athologist Signature PTT 21 (L) 25 - 37 sec [facility] Comment: Decreased clotting times may be [...] Dickens MD HEMATOLOGY ORDERABLES Performing Organization Address City/[facility]/ZIP Code Phon e Number [address] Prothrombin Time (03/04/2021 2:00 AM EDT) P athologist Signature PT 11.7 9.4 - 12.5 [facility] LABORATORY INR 1.0 [facility] Comment: An INR <2.0 indicates adequate [...] Resulting Agency Comment Spec In Lab Ever Dicknes MD HEMATOLOGY ORDERABLES Performing Organization Address City/State/ZIP Code Phon e Number [place] [id number]OSP[address] LAB[address] Beta HCG, quantitative (03/04/2021 2:00 AM EDT) athologist Signature Beta hCG Quant 11,658 mlU/ML [facility] Comment: result rechecked-KS REFERENCE RANGES NON- [...] - 55,868 ?18 weeks ? 8,099 - 40,176 Specimen Anatomical Collection Method Collection Time Receive d Time (Source) Location / / Volume Laterality Blood specimen 03/04/2021 2:00 AM 021 2:15 (specimen) EDT AM EDT Resulting Agency Comment Spec In Lab Ever Dickens MD CHEMISTRY ORDERABLES Performing Organization Address City/State/[place] [address] (ABNORMAL) Hepatic Function Panel (03/04/2021 2:00 AM EDT) Analysis Performed At Patho logist Time Signature Total Protein 6.1 6.1 - 8.0 [facility] RENNY gm/dL [facility] LABORATORY Albumin 3.7 3.2 - 5.2 [facility] RENNY gm/dL [facility] LABORATORY AST 13 0 - 30 [facility] unit/L [facility]ORY ALT 7 0 - 30 [facility] unit/L [facility] LABORATORY Alk Phos 50 35 - 105 [facility] REN[facility] unit/L [facility] LABORATORY Total <0.2 (L) 0.2 - 1.3 [facility] Bilirubin mg/dL [facility] LABORATORY Comment: result rechecked-KS Bili, Direct <0.1 0.0 - 0.3 mg/dL [facility] LABORATORY Specimen Anatomical Collection Method Collection Time Receive d Time (Source) Location / / Volume Laterality Blood specimen 03/04/2021 2:00 AM 021 2:15 (specimen) EDT AM EDT Resulting Agency Comment Spec In Lab Ever Dickens MD CHEMISTRY ORDERABLES Performing Organization Address City/State/ZIP Code Phon e Number [address] (ABNORMAL) Basic Metabolic Panel (non-fasting) (03/04/2021 2:00 AM EDT) P athologist Signature Glucose Lvl 100 65 - 199 [facility]ORY Comment: Diabetes: >=200 mg/dL plus symp toms BUN 12 8 - 18 mg/dL [facility] Creatinine 0.52 (L) 0.70 - 1.20 mg/dL [facility] Sodium 137 135 - 145 mmol/L [facility]ORY Potassium 4.4 3.5 - 5.0 mmol/L [facility] Comment: Please note: ??Patients with WBC >100,00 0 may have falsely elevated Potassium levels. ??For accurate Potassium quantif ication in these patients send serum separator tube (gold top) for subsequent determinations. ??Contact the Clinical Chemistry Laboratory if there are any qu estions. Chloride 103 98 - 107 mmol/L [facility] CO2 25 22 - 31 mmol/L [facility] Anion Gap 9 5 - 15 mmol/L [facility] Calcium 8.9 8.5 - 10.5 mg/dL [facility] Estimated GFR 127 >=60 mL/min/1.73 m?? [facility] Comment: This patient? s estimated glomerular [...] Organization Address City/State/ZIP Code Phon e Number [place] [id number] SCAN DOC: LAB (03/04/2021 12:00 AM EDT) Narrative 03/04/2021 12:00 AM EDT This result has an attachment that is no t available. Ordered by an unspecified provider. Scanning Provider MEDIA MGR SCAN EXT ORDR/RSLT documented in this encounter Visit Diagnoses Not [...] ordered pain medications are indicated. , Routine BUpivacaine (pf) (Marcaine) Given 03/04/2021 9:04 AM EDT 10 mLs 19- Surgical Site (2.5 mg/mL) 0.25% injection ONCE PRN, Starting on 03/04/21 at 0904, Until 03/04/21 at 1432, Intra-Operative (Intra-Procedure), Routine buprenorphine-naloxone (Suboxone) 8-2 mg Given 03/04/2021 [...] 0.5 mg, Intravenous, ONCE, 1 dose, On 03/04/21 at 0510, STAT lactated Ringers 1,000 mL [...] Routine documented in this encounter Care Teams Professor Of Political Science Relationship Specialty Start Date End Date Bob Machado DO PCP - General Family Medicine 12/14/19 [address] [place] [address] documented as of this encounter
--- OUTSIDE RECORDS SUMMARY | 2022-06-20 01:17 | XMS_ITS | Encounter Summary ---
:1990 Author Organization [facility] Address [address] [place] [address] Care Team Providers Name Role Phone Bob Machado DO Primary Care Provider Encounter Details Date Type Department Care Team Description 10/28/2021 Lab Requisition [facility] Outr Resulting Lab, Pathology & Laboratory Provider [facility] [address] [place] [id number] Social History Tobacco Use Types Packs/Day Years Used Date Never Assessed Sex Assigned at Date Recorded Not on file documented as of this encounter Plan of Treatment Not on filedocumented as of this encounter Procedures Procedure Name Priority Date/Time Associated Diagnosis Comme nts COVID-19 TEST [facility] Today 10/27/2021 11:30 LAB PCR EST COVID-19 TESTING Routine 10/27/2021 11:30 Results for this EST procedure are i n the results section. documented in this encounter Results COVID-19 TEST [facility] LAB PCR (10/27/2021 11:30 EST) Specimen Swab Performing Organization Address City/State/ZIP Code Phon e Number [facility] [address] [place] [address] SERVICES COVID-19 TESTING (10/27/2021 11:30 EST) COVID-19 rt-PCR Negative Negative [facility] MEDICAL Result Comment: CENTER LABORATORY This test has not been FDA c leared or approved. This test has been authorized by FDA under an EUA for use by authorized laboratories. This test has been authorized only for detection of nucleic acid fro SERVICES m 2018-nCo, not for any oth er viruses or pathogens. This test is only authorized for the duration of the declaration that circumstances exist justifying the authorization of emergency use of in vitro d iagnostic tests for detectio n and/or diagnosis of 2018-nCoV under section 564(b)(1) of Act, 21 U.S.C ?? 360bbb-3(b) (1), unless the authorization is terminated or revoked sooner. Negative results do not prec lude 2019-nCoV infection and should not be used as the sole basis for treatment or other patient management decisions. Negative results must be combined with clinical observa tions, patient history, and epidemiological informatio n. Testing was performed using the michael SARS-CoV-2 assay ([employer] on the Michael 6800 System Performing Lab Michael [address] [facility] Lab [facility]OR[facility] SERVICES Specimen Swab Performing Organization Address City/State/ZIP Code Phon e Number [facility] [address] [place] [address] SERVICES documented in this encounter Visit Diagnoses Not on filedocumented in this encounter Care Teams Principal Scientist Relationship Specialty Start Date End Date Bob Machado DO PCP - General 04/13/[address] [address] documented as of this encounter
--- OUTSIDE RECORDS SUMMARY | 2022-06-20 01:17 | XMS_ITS | Clinical Summary ---
:1990 Author Organization [facility] Address [address] [place] [address] Care Team Providers Name Role Phone Bob Machado DO Primary Care Provider Social History Tobacco Use Types Packs/Day Years Used Date Never Assessed Sex Assigned at Date Recorded Not on file Plan of Treatment Not on file Insurance Payer Benefit Plan Subscriber ID Effective Phone Address Typ e / Group Dates MEDICAID ACO MEDICAID ACO [id number] 2019-Pres [phone] [address] [place] [address] [facility] [id number] Care Teams Flatwork Tier Relationship Specialty Start Date End Date Bob Machado DO PCP - General 04/13/19 [address] [place] [id number]
[2022-06-20 14:59] LABS: Kit/Specimen SENT
[2022-06-20 15:09] LABS: Abs Immature Grans 0.03 10^3/uL (0.0-0.06); Absolute Basophil Count 0.04 10^3/uL (0.0-0.2); Absolute Eosinophil Count 0.21 10^3/uL (0.0-0.7); Absolute Lymphocyte Count 2.43 10^3/uL (1.2-3.4); Absolute Monocyte Count 0.65 10^3/uL (0.1-0.8); Absolute Neutrophil Count 5.03 10^3/uL (1.2-6.7); Basophils % 0.5; Eosinophils % 2.5; HCT 37.8 % (36.0-46.0); HGB 12.5 g/dL (11.2-15.7); Immature Grans % 0.4; MCH 30.7 pg (27.0-33.0); MCHC 33.1 % (32.0-36.0); MCV 93 fL (80-95); MPV 11.1 fL (8.0-11.0); Monocytes % 7.7; Neutrophils % 59.9; Platelet Count 189 10^3/uL (130-400); RBC 4.07 10^6/uL (3.93-5.22); RDW 12.8 % (11.7-14.6); RDW-SD 43.5 fL; WBC 8.39 10^3/uL (4.4-10.8)
[2022-06-20 16:06] LABS: TSH (W/Ref FT4) 0.66 uIU/mL (0.36-3.74)
[2022-06-21 10:11] LABS: Hepatitis B Surface Ag Negative (Negative)
[2022-06-21 10:42] LABS: HIV-1/2 Ag & Ab Screen Negative (Negative)
[2022-06-21 11:05] LABS: Hepatitis C Ab w Rflx HCV PCR Reactive (Negative)
[2022-06-21 11:17] LABS: Varicella IgG Antibody Positive (See Note)
[2022-06-21 11:25] LABS: Rubella IgG Ab (UVM) Positive (See Note)
[2022-06-21 14:52] LABS: HCV RNA Qualitative Undetected (Undetected)
[2022-06-21 19:34] LABS: Syphilis IgG w/Reflex Nonreactive (Nonreactive)
[2022-06-26 13:46] LABS: Result Summary NEGATIVE; Specimen WB Whole Blood
== END 2022-06-20 01:16 | disposition home or self-care (01) ==
LOC: LBO 01:15
PROVIDERS: PCP Family Medicine; Visit Provider Advanced Practice Midwife
DX: Z34.81 Encounter for supervision of other normal pregnancy, first trimester (principal); Z3A.00 Weeks of gestation of pregnancy not specified
CPT/HCPCS: 36415; 86787; 86803; 86850; 86900; 86901; 87340; 87389; 87522; 81220; 84443; 85025; 86762; 86780

== ENCOUNTER 2022-06-20 15:22 | Outpatient (REF) | payer MEDICAID, SELFPAY ==
--- NOTE | 2022-06-20 14:00 | PAPFT_PTH ---
PATIENT: Latricia Peralta LOC: [facility] U#:[id number] AGE/SX: 31/F ROOM: RE06/20/[address]: Jane Skelton CNM : 1990 BED: DIS: 06/20/2022 SPEC #: [id number] RECD: 06/20/22 17:55 STATUS: AMBROCIO REYossi #: [id number] ELISABETH: 06/20/22 14:[address]: Jane Skelton DEPT: [facility] Cytology RECD BY: Eleanor Arce ENTERED: 06/20/22 17:56 SP TYPE: PAPFT OTHR DR: Bob Machado DO Tissues: 1 - CX/ENDOCX FOR PAP SMEARS Procedures: PAP THIN PREP/UVM Screening HPV DNA PROBE Comments: [id number] (CHLAMYDIA/GC)
[2022-06-20 17:00] LABS: *AMPHETAMINES SCREEN URINE Negative (Negative); *BARBITURATES SCREEN URINE Negative (Negative); *BENZODIAZEPINES SCREEN URINE Negative (Negative); Cannabinoids THC Positive (Negative); Cocaine Screen,Urine Negative (Negative); METHADONE URINE SCREEN Negative (Negative); OPIATES URINE SCREEN Negative (Negative)
[2022-06-20 17:05] LABS: Tricyclic Antidepressants Negative (Negative)
[2022-06-21 18:21] LABS: Chlamydia Result Negative (Negative); GC Result Negative (Negative)
[2022-06-26 17:33] LABS: Buprenorphine 772.6 ng/mL (Cutoff: 5.0); Norbuprenorphine 3634.3 ng/mL (Cutoff: 2.5)
== END 2022-06-20 15:23 | disposition home or self-care (01) ==
LOC: LBN 15:22
PROVIDERS: PCP Family Medicine; Visit Provider Advanced Practice Midwife
DX: O99.321 Drug use complicating pregnancy, first trimester (principal); O09.11 Supervision of pregnancy with history of ectopic pregnancy, first trimester; N89.8 Other specified noninflammatory disorders of vagina; Z12.4 Encounter for screening for malignant neoplasm of cervix; Z11.51 Encounter for screening for human papillomavirus (HPV); Z11.3 Encounter for screening for infections with a predominantly sexual mode of transmission
CPT/HCPCS: 80307; 87491; 87591; 88142; 87086; 87480; 87510; 87624; 87660